=== PATIENT | female | born 1990 | race Caucasian/White ===

== ENCOUNTER 2020-01-10 18:48 | Inpatient (IN) | payer OTHER, SELFPAY ==
[2020-01-10 19:16] VITALS: BMI 28.8
--- NOTE | 2020-01-10 19:19 | LDADM ---
This patient, Graciela Stringer, was admitted to Labor/Delivery/Recovery 105 on 01/10/20 at 18:48. Plans for labor, pain management and were discussed with patient. Patient/family oriented to hospital policies and general routines including ID bracelet, bed and alarms, visiting hours, pain management, procedures, bathroom and other care routines, personal items, smoking policy, room service/diet and guest tray routines, security routines, and visiting hours. Patient/Family are encouraged to report perceived risks to care and to ask questions if they do not understand what they are told or what they should do. See OBIX for further documentation.
[2020-01-10 19:28] VITALS: BP 113/78; PULSE 100
[2020-01-10] MEDS: DINOPROSTONE 10 MG VAG INSERT VAGINAL (19:36)
[2020-01-10 19:37] LABS: Eosinophils Percent Auto 0.3 % (0-4.4); Hematocrit 33.5 % (37.0-47.0); Hemoglobin 11.4 g/dL (12.0-15.0); Immature Granulocyte Absolute 0.04 K/mm3 (0.00-0.031); Immature Granulocyte Percent A 0.7 % (0-0.5); Lymphocytes Absolute Auto 1.17 K/mm3 (0.9-3.2); Lymphocytes Percent Auto 19.5 % (18.3-44.2); Mean Corpuscular Hemoglobin 32.4 pg (26-34); Mean Corpuscular Volume 95.2 fl (80-100); Mean Platelet Volume 9.4 fl (7.4-10.4); Monocytes Absolute Auto 0.4 K/mm3 (0.1-0.6); Neutrophils Absolute Auto 4.4 K/mm3 (1.3-6.7); Neutrophils Percent Auto 72.5 % (45.5-73.1); Platelet Count Result 206 k/mm3 (150-375); Red Blood Count 3.52 M/mm3 (4.2-5.4)
--- NOTE | 2020-01-10 20:06 | P.PNAN_ITS ---
Anes - Eval Pre Procedure Procedure: Labor epidural Date/Time: 01/10/20 20:06 Surgeon: Nikita Preop Diagnosis: pain during labor Pre Op Diagnosis: Induction of Labor Patient Data Age: 29 Gender: F Height: 1.73 m Weight: 86 kg Last Vital Signs Pulse 100 01/10/20 19:28 BP 113/78 01/10/20 19:28 Allergies Allergy/AdvReac Type Severity Reaction Status Date / Time Penicillins Allergy Hives Verified 12/07/19 15:23 Home Medications Medication Instructions Recorded Confirmed Type PNV cmb#95-ferrous fumarate-FA 1 tablet PO DAILY 12/07/19 12/07/19 History [] ferrous sulfate [Iron (ferrous 325 mg PO BID 12/07/19 12/07/19 History sulfate)] Laboratory Tests 01/10/20 01/10/20 19:21 19:21 WBC 6.0 K/mm3 K/mm3 (4.5-10.0) RBC 3.52 M/mm3 L M/mm3 (4.2-5.4) Hgb 11.4 g/dL L g/dL (12.0-15.0) Hct 33.5 % L % (37.0-47.0) MCV 95.2 fl fl (80-100) MCH 32.4 pg pg (26-34) MCHC 34.0 g/dl g/dl (32-36) RDW 13.0 % % (11.5-14.5) Plt Count 206 k/mm3 k/mm3 (150-375) MPV 9.4 fl fl (7.4-10.4) Immature Gran % (Auto) 0.7 % H % (0-0.5) Neut % (Auto) 72.5 % % (45.5-73.1) Lymph % (Auto) 19.5 % % (18.3-44.2) [place] % (Auto) 7.0 % % (2.6-8.5) Eos % (Auto) 0.3 % % (0-4.4) Baso % (Auto) 0.0 % L % (0.2-1.2) Lymph # (Auto) 1.17 K/mm3 K/mm3 (0.9-3.2) [place] # (Auto) 0.4 K/mm3 K/mm3 (0.1-0.6) Eos # (Auto) 0.0 K/mm3 K/mm3 (0-0.3) Baso # (Auto) 0.0 K/mm3 K/mm3 (0.0-0.1) Abs Immat Gran (auto) 0.04 K/mm3 H K/mm3 (0.00-0.031) Absolute Neuts (auto) 4.4 K/mm3 K/mm3 (1.3-6.7) Absolute Nucleated RBC 0.0 K/mm3 K/mm3 (0.0-0.012) Nucleated RBC % 0.0 % % (0.0-0.2) RPR Pending Patient hx anesthesia problems: none Family hx anesthesia problems: none PMFSH Family History Family History (Updated 12/07/19 @ 15:25 by Harvey Villareal RN) Father Diabetes mellitus Mother Diabetes mellitus Hypertension Social History Social History Smoking status: Never smoker Substance use: never Gender identity (if verbalized by the patient): Female Spiritual care concerns: No Exam Day of Procedure 01/10/20 20:06
[2020-01-10 21:40] VITALS: TEMP 36.9
[2020-01-10 21:42] VITALS: BP 123/68; PULSE 83
[2020-01-11] VITALS (235 sets, daily range): BP systolic 94–144; BP diastolic 41–111; PULSE 41–254; TEMP 36.8–37.7; O2SAT 78–100
[2020-01-11] MEDS: LACTATED RINGERS 1,000 ML 125 ML IV CONT ×4 (07:58→17:08)
[2020-01-11] MEDS: OXYTOCIN 30 UNITS/NS 500 ML 30 UNITS/500 ML BAG 6 UNITS IV CONT (08:01)
[2020-01-11 10:20] LABS: Rapid Plasma Reagin Non-Reactive (NonReactive)
--- NOTE | 2020-01-11 12:35 | PM.IMHP ---
H&P: HPI History of Present Illness Date/Time: 01/11/20 12:35 Chief complaint: Induction of Labor Narrative: Graciela Stringer is a 29 year old female at 41w0d admitted for elective term induction of labor. Cervical ripening started with cervidil overnight. Doing well today. Comfortable with epidural and no complaints. Review of Systems Constitutional: Constitutional: Reports no additional constitutional complaints Cardiovascular: Cardiovascular: Reports no additional cardiovascular complaints Respiratory: Respiratory: Reports no additional respiratory complaints Gastrointestinal: Gastrointestinal: Reports no additional gastrointestinal complaints Genitourinary: Genitourinary: Reports no additional female genitourinary complaints Musculoskeletal: Musculoskeletal: Reports no additional musculoskeletal complaints Psychiatric: Psychiatric: Reports no additional psychiatric complaints PMF Family History Family History Father Diabetes mellitus Mother Diabetes mellitus Hypertension Social History Social History Smoking status: Never smoker Substance use: never Gender identity (if verbalized by the patient): Female Spiritual care concerns: No Meds Home Medications and Allergies Home Medications Medication Instructions Recorded Confirmed Type PNV cmb#95-ferrous fumarate-FA 1 tablet PO DAILY 12/07/19 12/07/19 History [] ferrous sulfate [Iron (ferrous 325 mg PO BID 12/07/19 12/07/19 History sulfate)] Allergies Allergy/AdvReac Type Severity Reaction Status Date / Time Penicillins Allergy Hives Verified 12/07/19 15:23 Vital Signs Vital Signs - 24 hr 01/10/20 19:28 01/10/20 21:40 01/10/20 21:42 Temperature 36.9 C Pulse Rate 100 83 Blood Pressure 113/78 123/68 Pulse Oximetry 01/11/20 01:27 01/11/20 05:50 01/11/20 06:01 Temperature 36.9 C 36.9 C Pulse Rate 81 89 Blood Pressure 113/65 120/70 Pulse Oximetry 01/11/20 06:42 01/11/20 06:46 01/11/20 07:01 Temperature Pulse Rate 96 88 93 Blood Pressure 116/63 116/71 109/68 Pulse Oximetry 01/11/20 07:16 01/11/20 07:46 01/11/20 08:00 Temperature 37.1 C Pulse Rate 97 85 Blood Pressure 112/77 118/73 Pulse Oximetry 01/11/20 08:01 01/11/20 08:16 01/11/20 08:31 Temperature Pulse Rate 93 95 86 Blood Pressure 120/82 114/78 124/77 Pulse Oximetry 01/11/20 10:01 01/11/20 10:02 01/11/20 10:16 Temperature 36.8 C Pulse Rate 93 87 86 Blood Pressure 120/79 118/68 128/73 Pulse Oximetry 01/11/20 10:21 01/11/20 10:26 01/11/20 10:29 Temperature Pulse Rate 94 100 Blood Pressure 129/81 110/66 Pulse Oximetry 99 99 01/11/20 10:31 01/11/20 10:33 01/11/20 10:36 Temperature Pulse Rate 88 92 83 Blood Pressure 126/75 126/89 117/72 Pulse Oximetry 100 99 01/11/20 10:37 01/11/20 10:38 01/11/20 10:41 Temperature Pulse Rate 96 85 100 Blood Pressure 119/75 118/72 122/100 H Pulse Oximetry 99 01/11/20 10:43 01/11/20 10:44 01/11/20 10:46 Temperature Pulse Rate 84 87 Blood Pressure 123/69 123/64 Pulse Oximetry 98 01/11/20 10:48 01/11/20 10:51 01/11/20 10:53 Temperature Pulse Rate 80 88 Blood Pressure 119/63 126/80 Pulse Oximetry 98 99 01/11/20 10:54 01/11/20 10:56 01/11/20 10:58 Temperature Pulse Rate 82 81 Blood Pressure 126/75 126/73 Pulse Oximetry 99 01/11/20 10:59 01/11/20 11:01 01/11/20 11:03 Temperature Pulse Rate 89 78 70 Blood Pressure 103/46 L 119/80 116/70 Pulse Oximetry 99 01/11/20 11:06 01/11/20 11:08 01/11/20 11:11 Temperature Pulse Rate 67 72 76 Blood Pressure 119/75 117/70 118/74 Pulse Oximetry 98 01/11/20 11:13 01/11/20 11:16 01/11/20 11:18 Temperature Pulse Rate 77 70 67 Blood Pressure 116/71 117/72 118/68 Pulse Oximetry 99 100 01/11/20 11:21 01/11/20 1
[2020-01-11] MEDS: OXYTOCIN 30 UNITS/NS 500 ML 30 UNITS/500 ML BAG 125 UNITS IV CONT (21:25)
--- NOTE | 2020-01-11 21:35 | PM.OBPRVD ---
OB - Delivery Note Procedure Delivery date: 01/11/20 Procedure: Normal spontaneous vaginal delivery Intrapartal events: None Induction method: per misoprostol protocol (cervidil) and per pitocin protocol Delivery augmentation: rupture of membranes Delivery monitor: external FHT and external uterine Route of delivery: Laceration description: Periurethral - 2nd Degree Delivery repair: vicryl Specimen: Yes (placenta) Estimated blood loss (mL): 800 Anesthesia type: Epidural Narrative: Once she was noted to be complete and ready to push, the labor bed was broken down and legs were placed in stirrups for support. With contractions and maternal efforts, the presented in KLAUDIA position. The head was delivered. Checked for nuchal cord, no nuchal cord noted. Gentle downward traction was applied and the anterior shoulder delivered without issues, followed by the posterior shoulder and rest of the body. was vigrous and crying, so delayed cord clamping of approximately 1 minute was performed. The cord was clamped and cut. Cord gasses collected. Placenta was delivered spontaneously. IV oxytocin administered and fundal massage applied. Exam was performed to identify any lacerations. 2nd degree perineal laceration was repaired with 2-0 Vicryl. Good hemostasis noted. Patient tolerated the procedure well. All instrument and sponge counts were correct at the end of the procedure. [place] Baby Date of : 01/11/20 Time of : 20:57 Weeks of gestation at delivery: 41 Infant gender: Male Weight (pounds): 11 Weight (ounces): 0 presentation: vertex position: Left Occiput Anterior Placenta delivery description: Spontaneous cord vessel description: 3 Vessels score one minute: 8 score five minutes: 9
[2020-01-11] MEDS: LANOLIN (LANSINOH) 7.5 GM CREAM 1 APPLIC TOPICAL (22:28)
[2020-01-11] MEDS: WITCH HAZEL 40 PADS 1 PAD TOPICAL (22:28)
[2020-01-11] MEDS: BENZOCAINE 20% AER SPR (*SP) 56 GM CAN 1 SPRAY TOPICAL (22:28)
[2020-01-11] MEDS: IBUPROFEN 600 MG TABLET PO (22:54)
[2020-01-12 00:01] VITALS: BP 109/52; PULSE 72
[2020-01-12 00:16] VITALS: BP 108/52; PULSE 79
[2020-01-12] MEDS: LACTATED RINGERS 1,000 ML 999 ML (00:16)
[2020-01-12 00:40] VITALS: BP 114/63; PULSE 81; RESP 15; TEMP 37.1; O2SAT 98
[2020-01-12] MEDS: IBUPROFEN 600 MG TABLET PO ×3 (05:01→17:49)
[2020-01-12 05:28] LABS: Hemoglobin 8.8 g/dL (12.0-15.0)
[2020-01-12 07:15] VITALS: BP 105/70; PULSE 94; RESP 18; TEMP 36.4; O2SAT 99
--- NOTE | 2020-01-12 07:51 | P.PNAN_ITS ---
Anes-Prog Note L&D Date/Time: 01/12/20 07:51 Comfortable throughout: labor Neuraxial method: epidural Epidural/Spinal procedure site: clean & non-tender Neuro status: Neuro function grossly intact. Cardiovascular status: normal Respiratory status: normal Airway patency: baseline Mental status: baseline Post-Op hydration status: normal Vital Signs: Last Vital Signs Temp 37.1 C 01/12/20 00:40 Pulse 81 01/12/20 00:40 Resp 15 01/12/20 00:40 BP 114/63 01/12/20 00:40 Pulse Ox 98 01/12/20 00:40 I/O: Intake & Output 01/11/20 01/11/20 01/12/20 15:59 23:59 07:59 Intake Total 1999 999 Output Total 1702 168 Balance 1999 -595 -392 Post-procedural complaints: none Patient feedback: Patient satisfied with anesthetic care.
[2020-01-12] MEDS: MULTIVIT/MIN/PREN/FOL AC/IRON TABLET 1 TAB PO (09:52)
[2020-01-12] MEDS: DOCUSATE SODIUM 100 MG CAPSULE PO ×2 (09:52→17:50)
[2020-01-12] MEDS: POLYSACCHARIDE IRON COMPLEX 150 MG CAPSULE PO ×2 (09:52→17:49)
--- NOTE | 2020-01-12 10:30 | PC.NURSE ---
Consulted with patient, mother reports using a nipple shield for most feedings since . Both nipples are bruised from shallow latching. Discussed nipple shield precautions and possible complications. Instructions given on application and cleaning of shield. Patient able to return demonstration on proper application of shield. Discussed the need to initiate pumping if infant continues to nurse with the shield. Patient verbalizes understanding. Reviewed feeding cues, frequencies, duration of feedings, feeding elimination flow sheet, and signs of adequate intake. Demonstrated stimulation techniques to wake infant for feeding. Assisted with infant to breast. Reviewed positioning/alignment in cross cradle, holding breast in U hold and asymmetrical latch on. Discussed rational for each. Infant was able to latch correctly. nursed eagerly with steady draws and occasional swallowing for short bursts followed by long pausing. Reviewed signs of a correct latch, effective nursing and suck swallow ratio. was able to maintain latch without discomfort to mother. Nipple care reviewed. Advised to stimulate to keep awake and nursing effectively for increased intake and to assist with maintaining deep latch. Demonstrated how to adjust latch more deeply while feeding.
--- NOTE | 2020-01-12 13:43 | PM.OBPNVD ---
OB - PN: Subj Subjective Date/time seen: 01/12/20 13:43 PPD #1 Today she is doing well. She reports her pain is controlled. Her bleeding is slowing down, more normal now. She is tolerating regular diet. She is voiding and passing flatus. She has ambulated w/o symptoms of anemia. She is breast feeding, with lactations help. She desires her son to be circumcised. She would like to be discharged home tomorrow. She denies CP, SOB, DALEY, vision changes, N/V, fever, chills, dizziness or palpitations. OB - PN: Obj Data Labs CBC & Chem 7: 01/12/20 05:00 Labs: Laboratory Results - last 24 hr 01/12/20 05:00 Hgb 8.8 L Hct 26.0 L OB - PN A/P Assessment and Plan (1) Status post vaginal delivery: Status: Acute (2) PPH ( hemorrhage): Qualifiers: hemorrhage type: other immediate Qualified Code(s): O72.1 - Other immediate hemorrhage Code(s): O72.1 - Other immediate hemorrhage Status: Acute Plan day: 1 Plan: routine care, discharge home (tomorrow) and other (Strict ER return precautions. F/u in 4 weeks. ) Comments: Labs with expected drop in H/H due to PPH, bleeding light now. Time Spent With Patient Time: Total time spent is greater than 50% in coordination of care (as documented) at patient's floor/unit and/or counseling patient: Review of Systems Review of Systems: All systems reviewed & are unremarkable except as noted in HPI and below (HPI) Exam Const: General: comfortable, no acute distress, alert and awake Orientation/consciousness: patient oriented x3 Resp: Effort & Inspection: normal respiratory effort Auscultation: clear to auscultation bilaterally Cardio: Rate: regular rate GI: Auscultation: normal bowel sounds Other: mildly distended, soft, nontender : Other: fundus firm below umbilicus Psych: Appearance: grossly normal Affect: normal affect Attitude: cooperative
--- NOTE | 2020-01-12 14:45 | PC.NURSE ---
Breast pump provided due to nipple shield use. Instructions given on breast pump care and usage, pumping schedule, nipple care, and collection and storage of breast milk. Encouraged [id number], breast massage and manual expression to stimulate supply. . Assessed patient for correct flange size, placement and draw. Patient verbalizes and demonstrates understanding of instructions.
--- NOTE | 2020-01-12 15:15 | PC.NURSE ---
Mother called out for assist. was able to latch correctly using nipple shield. nursed eagerly with steady draws and occasional swallowing for short bursts followed by long pausing. Reviewed signs of a correct latch, effective nursing and suck swallow ratio. Infant was able to maintain latch without discomfort to mother. Nipple care reviewed. Infant fed for 3 minutes and was unable to wake to complete feeding. Discussed supplementation at this time, suggested to limit to 15 mls after each feeding and continue to pump after each feeding attempt while using the nipple shield.
[2020-01-12] MEDS: LANOLIN (LANSINOH) 7.5 GM CREAM 1 APPLIC TOPICAL (17:50)
[2020-01-12 20:55] VITALS: BP 121/77; PULSE 87; RESP 18; TEMP 36.6; O2SAT 97
[2020-01-13] MEDS: IBUPROFEN 600 MG TABLET PO ×2 (05:16→12:18)
--- NOTE | 2020-01-13 07:45 | PC.NURSE ---
PT introductions made and plan of care discussed per post , pain management, breast/pumping/supplementing, daily care activities and pending discharge to home. PT verbalized understanding of such care.
[2020-01-13 09:00] VITALS: BP 123/80; PULSE 88; RESP 18; TEMP 36.6; O2SAT 100
--- NOTE | 2020-01-13 09:00 | PC.NURSE ---
Patient viewed the discharge video Mother & Baby Care, The First Two Weeks . Patient was given the opportunity and encouraged to ask questions. Patient verbalized understanding of information shared and has been given the mother/baby guide for home reference.
[2020-01-13] MEDS: ACETAMINOPHEN 325 MG TABLET 650 MG PO (09:03)
[2020-01-13] MEDS: MULTIVIT/MIN/PREN/FOL AC/IRON TABLET 1 TAB PO (09:03)
[2020-01-13] MEDS: DOCUSATE SODIUM 100 MG CAPSULE PO (09:03)
[2020-01-13] MEDS: POLYSACCHARIDE IRON COMPLEX 150 MG CAPSULE PO (09:03)
[2020-01-13] MEDS: MEASLES,MUMPS,RUBELLA VACCINE 0.5 ML VIAL SUB-Q (12:17)
--- NOTE | 2020-01-13 13:30 | PC.NURSE ---
PT received discharge instructions per protocol and pt verbalized understanding of such instructions
--- NOTE | 2020-01-13 14:00 | PC.NURSE ---
PT discharged to home ambulatory accompanied by spouse and to waiting car. Follow up appts confirmed
[2020-01-15 10:20] VITALS: BP 133/86; PULSE 65; RESP 20; TEMP 36.7; O2SAT 100
--- NOTE | 2020-01-16 08:56 | PM.OBDSVD ---
DS: Admitting Diagnosis Admitting Diagnosis Admitting Diagnosis: Encounter for supervision of normal , unspecified, unspecified trimester DS: Discharge Diagnosis Discharge Diagnosis (1) Status post vaginal delivery: Status: Acute (2) PPH ( hemorrhage): Qualifiers: hemorrhage type: other immediate Qualified Code(s): O72.1 - Other immediate hemorrhage Code(s): O72.1 - Other immediate hemorrhage Status: Acute OB - DS: Summary Hospital Course Hospital Course: Admitted for elective induction of labor at term. Cervical ripening with cervidil followed by pitocin and AROM for induction of labor. course was complicated with hemorrhage. Managed with IV oxytocin and fundal massage. Date of discharge 01/13/20. OB Procedures : None OB Procedures Intrapartum: Spontaneous Vag Delivery OB Procedures: : None Peripartum Data Delivery Method: Natural Vaginal Laceration description: Periurethral - 2nd Degree complications: other ( hemorrhage) Status at Discharge Functional status at discharge: independent ambulation Overall status at discharge: patient is progressing back to baseline Time Spent with Patient Time attestation: Total time spent providing and/or coordinating discharge services: DS: Data Data Completed and Pending Pending studies at discharge: Pending at discharge 01/11/20 21:02 Surgical [PTH] Routine Discharge Plan Discharge Attending physician on discharge: Briana Jewell Discharging Clinician: Briana Jewell Anticipated Discharge Date/Time: 01/13/20 12:00 Patient Disposition: Home, Self-Care Activity: pelvic rest Diet: regular Discharge Instructions: Education: Mom and Baby Guide Given to: Mother Follow-Up: Call your delivering provider's office for an appointment to be seen in: 4 Weeks Mom and baby should come to the [facility] for the follow-up appointment. Appointment Date/Time: January 15, 2020 at 10:00 am What to expect at your follow-up visit: Blood Pressure Check Call [phone] if you are unable to keep your appointment time. BREAST CARE: * Wear a snug supportive bra. * For engorgement discomfort: Breast Feeding: * Apply warm moist washcloths * Express milk as needed to relieve engorgement * Wear loose clothing Bottle Feeding: * May apply ice packs * For sore nipples: * Identify correct latch-on * Apply warm moist washcloths before and after nursing * Air dry nipples after nursing * May apply Lansinoh cream to nipples PERINEAL CARE: * Until bleeding stops, use your anne bottle after urinating * Change your pad frequently throughout the day * You may take sitz baths several times a day (fill your bathtub with warm water and soak for 20 minutes.) Do NOT bathe in the water * No tub baths until seen by your physician - You may shower ACTIVITY: * Rest as much as possible. * Do not exercise or lift anything heavier than your baby (such as laundry or other children.) * Avoid stairs or driving as much as possible. * Do not put anything into the vagina. No douching, tampons, or sexual activity until seen by physician. NOTIFY PHYSICIAN IF YOU HAVE ANY QUESTIONS OR IF ANY OF THE FOLLOWING SYMPTOMS OCCUR: * If your perineum becomes red, swollen, or more painful than what you have experienced in the hospital. * If your vaginal bleeding becomes foul smelling. * If your vaginal bleeding becomes more heavy than a period or if your bleeding changes from pink to bright red. However, you may pass an occasional walnut-sized clot once or twice for the first week . * If you experience a sharp, shooting pain in you calves. * If you discover a hard, reddened area on your breast or if you experience flu-like symptoms. *
== END 2020-01-13 14:00 | disposition home or self-care (01) | DRG 806 ==
LOC: ANHOB2 01-13 07:52 → ANHLDR 01-16 09:24 → ANHOB2 01-16 09:24
PROVIDERS: Admitting Provider Obstetrics & Gynecology; PCP Nurse Practitioner; Visit Provider Obstetrics & Gynecology
DX: O36.8330 Maternal care for abnormalities of the fetal heart rate or rhythm, third trimester, not applicable or unspecified (principal); O72.1 Other immediate postpartum hemorrhage; Z37.0 Single live birth; Z3A.41 41 weeks gestation of pregnancy
CPT/HCPCS: 36415; 85014; 85018; 85025; 86592; 86850; 86900; 86901; 88307; 90710; A9270; J2590; J2795; J7120

== ENCOUNTER 2020-06-22 17:13 | Emergency (ER) | payer BC, SELFPAY ==
--- NOTE | 2020-06-22 17:16 | ED.FEMALEGU ---
HPI - Female Genitourinary General Chief complaint: Urogenital-Female Stated complaint: uti Time Seen by Provider: 06/22/20 17:16 Source: patient and RN notes reviewed History of Present Illness HPI Narrative: Patient is a 29-year-old female who presents the urgent care with complaints of a possible UTI. Patient states on she started to have a urgency and frequency and is now having burning since yesterday. Patient states she does have a 5-month-old at home but is not using any type of control and does not breast-feed. Patient states she has had a period since the and her last period was May 29. Denies of any nausea, vomiting, diarrhea, abdominal pain, low back pain. Patient does not have frequent history of urinary tract infections. No other acute complaints. No acute distress noted. Patient aware of the plan of care. Some parts of this dictation were generated by voice recognition software and may contain typographical and/or grammatical inaccuracies. Related Data Home Medications Medication Instructions Recorded Confirmed No Home Medications 06/22/20 06/22/20 Allergies Allergy/AdvReac Type Severity Reaction Status Date / Time Penicillins Allergy Hives Verified 12/07/19 15:23 Review of Systems Review of Systems: Narrative: CONSTITUTIONAL: Denies fever, chills, or sweats. EYES: Denies visual changes, redness, or discharge. ENT: Denies rhinorrhea, congestion, sore throat, or otalgia. CARDIOVASCULAR: Denies chest pain, palpitations, or edema. RESPIRATORY: Denies cough or dyspnea. GASTROINTESTINAL: Denies abdominal pain, nausea, vomiting, or diarrhea. GENITOURINARY: Reports of urinary urgency, frequency and dysuria SKIN: Denies rash or itching. MUSCULOSKELETAL: Denies back pain, joint pain, or myalgia. NEUROLOGIC: Denies headache, numbness, or weakness. All other systems reviewed are negative, except as documented in HPI. [facility] Family History Family History Father Diabetes mellitus Mother Diabetes mellitus Hypertension Social History Social History Smoking status: Never smoker Substance use: never Gender identity (if verbalized by the patient): Female Spiritual care concerns: No Comments At the time of my signature, I reviewed and agree with the nursing past medical, surgical, social, and family history. There is no relevant family history pertinent to the patient complaint. Exam Narrative: Exam Narrative: GENERAL: This is a well-nourished, well-developed patient, in no apparent distress. HEAD: normocephalic, atraumatic. EYES: PERRL. Sclera clear/white. Vision is grossly intact. EARS: External ears normal NOSE: External nose normal with no obvious nasal discharge, nares without redness, no rhinorrhea. THROAT: Mucous membranes moist NECK: Neck supple GASTROINTESTINAL: Abdomen soft, mild suprapubic tenderness, nondistended. SKIN: warm, intact with no suspicious lesions or rash, good texture and turgor. NEURO: awake, alert, and oriented to person, place and time. There were no obvious focal neurologic abnormalities. EXTREMITIES: No clubbing, cyanosis, or edema. BACK: Negative bilateral CVA tenderness Course Vital Signs Vital signs: Vital Signs Temperature 98.9 F 06/22/20 17:28 Pulse Rate 89 06/22/20 17:28 Respiratory Rate 20 06/22/20 17:28 Blood Pressure 139/89 06/22/20 17:28 Pulse Oximetry 100 06/22/20 17:28 Temperature 98.9 F 06/22/20 17:28 Pulse Rate 89 06/22/20 17:28 Respiratory Rate 20 06/22/20 17:28 Blood Pressure 139/89 06/22/20 17:28 Pulse Oximetry 100 06/22/20 17:28 Reviewed MDM - Female Genitourinary MDM Narrative Medical decision making narrative: Reviewed lab results with the patient. She is aware that urine analysis is not indicative of a urinary tract infection. No notable bacteria or blood in the urine. Pre
[2020-06-22 17:28] VITALS: BP 139/89; PULSE 89; RESP 20; TEMP 37.2; O2SAT 100
== END 2020-06-22 17:39 | disposition home or self-care (01) ==
PROVIDERS: Emergency Provider Nurse Practitioner Family; PCP Nurse Practitioner
DX: R30.0 Dysuria (principal)
CPT/HCPCS: 81003; 81025; 99213; G0463

== ENCOUNTER 2021-02-04 12:38 | Emergency (ER) | payer BC, SELFPAY ==
--- NOTE | ~2021-02-04 | US_ITS ---
EXAMINATION: US pelvic complete w TV DATE: 02/04/2021 14:44 INDICATION: Ectopic . Miscarriage. TECHNIQUE: Multiple transabdominal and endovaginal sonographic images of the pelvis were obtained. COMPARISON: None. FINDINGS: The anteverted uterus measures 8.5 x 4.6 x 6.4 cm. The endometrial complex appears heterogeneous and is thickened measuring 12 mm at the fundus increasing to 2 cm at the lower uterine segment/cervix wi th an irregularly-shaped gestational sac with yolk sac and likely pole without evident vascular flow on color Doppler within the endocervical canal consistent with in progress. The cervic al os appears dilated to 9 mm. Right ovary measures 1.8 x 1.6 x 2.1 cm . Left ovary measures 2.4 x 1. 6 x 1.5 cm and contains a 1.2 cm anechoic likely corpus luteum cyst. Vascular flow with arterial wave forms identified in both ovaries. No free fluid in the pelvis. IMPRESSION: 1. demise with in progress with gestational sac within the endocervical canal. Reviewed, dictated and finalized at location A. IMPRESSION: 1. demise with in progress with gestational sac within the endoc ervical canal.
[2021-02-04 12:50] VITALS: BP 119/83; PULSE 130; RESP 20; TEMP 36.4; O2SAT 100
[2021-02-04 13:26] LABS: Basophils Percent Auto 0.3 % (0.2-1.2); Eosinophils Percent Auto 0.4 % (0-4.4); Hematocrit 25.3 % (37.0-47.0); Hemoglobin 8.3 g/dL (12.0-15.0); Immature Granulocyte Absolute 0.02 K/mm3 (0.00-0.031); Immature Granulocyte Percent A 0.3 % (0-0.5); Lymphocytes Absolute Auto 1.21 K/mm3 (0.9-3.2); Lymphocytes Percent Auto 17.6 % (18.3-44.2); Mean Corpuscular HGB Conc 32.8 g/dl (32-36); Mean Corpuscular Hemoglobin 31.1 pg (26-34); Mean Corpuscular Volume 94.8 fl (80-100); Mean Platelet Volume 9.7 fl (7.4-10.4); Monocytes Absolute Auto 0.3 K/mm3 (0.1-0.6); Monocytes Percent Auto 4.7 % (2.6-8.5); Neutrophils Absolute Auto 5.3 K/mm3 (1.3-6.7); Neutrophils Percent Auto 76.7 % (45.5-73.1); Platelet Count Result 233 k/mm3 (150-375); Red Blood Count 2.67 M/mm3 (4.2-5.4); Red Cell Distribution Width 12.2 % (11.5-14.5); White Blood Count 6.9 K/mm3 (4.5-10.0)
--- NOTE | 2021-02-04 14:01 | ED.FEMALEGU ---
HPI - Female Genitourinary General Chief complaint: Vaginal Bleeding <Yahir Rolle MD - Last Filed: 02/04/21 16:50> Stated complaint: poss miscarriage, bleeding <Yahir Rolle MD - Last Filed: 02/04/21 16:50> Time Seen by Provider: 02/04/21 13:48 <Yahir Rolle MD - Last Filed: 02/04/21 16:50> Source: patient and RN notes reviewed <Yahir Rolle MD - Last Filed: 02/04/21 16:50> Mode of arrival: ambulatory <Yahir Rolle MD - Last Filed: 02/04/21 16:50> Limitations: no limitations <Yahir Rolle MD - Last Filed: 02/04/21 16:50> History of Present Illness HPI Narrative: Patient is 30 years old probably 10 weeks , 2, para one, zero presents to the ED with heavy vaginal bleeding, passing blood clots, associated with lightheadedness, dizziness and general weakness started over the last 48 hours. Patient had history of vaginal spotting for weeks, last week was seen by Dr. Soto and the diagnosis was miscarriage and patient probably will be better off to miscarriage naturally. Because of the heavy bleeding over the last 48 hours patient changed her mind and would like to have D&C. <Yahir Rolle MD - Last Filed: 02/04/21 16:50> Related Data Home medications: Home Medications Medication Instructions Recorded Confirmed No Home Medications 06/22/20 06/22/20 <Yahir Rolle MD - Last Filed: 02/04/21 16:50> Allergies/Adverse reactions: Allergies Allergy/AdvReac Type Severity Reaction Status Date / Time Penicillins Allergy Hives Verified 02/04/21 12:55 <Yahir Rolle MD - Last Filed: 02/04/21 16:50> Review of Systems Review of Systems: CONSTITUTIONAL: Denies fever, chills, or sweats. EYES: Denies visual changes, redness, or discharge. ENT: Denies rhinorrhea, congestion, sore throat, or otalgia. CARDIOVASCULAR: Denies chest pain, palpitations, or edema. RESPIRATORY: Denies cough or dyspnea. GASTROINTESTINAL: Denies abdominal pain, nausea, vomiting, or diarrhea. GENITOURINARY: Denies dysuria or hematuria. SKIN: Denies rash or itching. MUSCULOSKELETAL: Denies back pain, joint pain, or myalgia. NEUROLOGIC: Denies headache, numbness, or weakness. PSYCHIATRIC: Denies anxiety or depression. <Yahir Rolle MD - Last Filed: 02/04/21 16:50> PMFSH Family History Family History: Family History Father Diabetes mellitus Mother Diabetes mellitus Hypertension <Yahir Rolle MD - Last Filed: 02/04/21 16:50> Social History Social History: Social History Smoking status: Never smoker Substance use: never Gender identity (if verbalized by the patient): Female Spiritual care concerns: No <Yahir Rolle MD - Last Filed: 02/04/21 16:50> Exam Narrative: General appearance: Well-developed, well-nourished Skin: Normal color Head: Normocephalic, nontraumatic Eyes: Clear conjunctiva ENT: Oropharynx normal, ears normal, nose normal Neck: Supple, nontender Chest and respiratory: Airway patent, no respiratory distress, no accessory muscle use Heart: Regular rate/rhythm Abdomen: Soft, nontender, no organomegaly, quiet bowel sounds Vascular: Normal peripheral pulses, normal capillary refill. Musculoskeletal: Normal range of motion, nontender back Neurologic: Alert and oriented ?3, WOOL MIXER is normal as tested, no gross motor deficit <Yahir Rolle MD - Last Filed: 02/04/21 16:50> : External Female Exam: normal external appearance <Yahir Rolle MD - Last Filed: 02/04/21 16:50> Speculum Exam - Vagina: normal appearance of the vagina, vaginal bleedin
[2021-02-04] MEDS: SODIUM CHLORIDE 0.9% IV 1,000 ML 999 ML IV CONT (14:56)
[2021-02-04] MEDS: METHYLERGONOVINE MALEATE 0.2 MG/ML VIAL IM (15:58)
[2021-02-04 17:47] VITALS: BP 119/83; PULSE 104; RESP 18; O2SAT 100
[2021-02-04] MEDS: LACTATED RINGERS 1,000 ML 999 ML IV CONT (17:59)
[2021-02-04 19:40] VITALS: BP 120/68; PULSE 78; RESP 18; O2SAT 99
== END 2021-02-04 19:42 | disposition home or self-care (01) ==
PROVIDERS: Emergency Medicine; Emergency Provider Emergency Medicine
DX: O03.4 Incomplete spontaneous abortion without complication (principal)
CPT/HCPCS: 36415; 76830; 76856; 84702; 85025; 85461; 96360; 96361; 96372; 99284; J2210; J7030; J7120

== ENCOUNTER 2021-02-05 22:32 | Observation (INO) | payer BC, SELFPAY ==
[2021-02-05 22:34] VITALS: BP 108/68; PULSE 129; RESP 20; TEMP 36.9; O2SAT 100
[2021-02-05 22:47] LABS: Basophils Percent Auto 0.3 % (0.2-1.2); Eosinophils Absolute Auto 0.1 K/mm3 (0-0.3); Eosinophils Percent Auto 0.9 % (0-4.4); Immature Granulocyte Absolute 0.07 K/mm3 (0.00-0.031); Immature Granulocyte Percent A 0.9 % (0-0.5); Lymphocytes Absolute Auto 2.21 K/mm3 (0.9-3.2); Lymphocytes Percent Auto 28.1 % (18.3-44.2); Mean Corpuscular HGB Conc 33.1 g/dl (32-36); Mean Corpuscular Hemoglobin 32.3 pg (26-34); Mean Corpuscular Volume 97.3 fl (80-100); Mean Platelet Volume 9.3 fl (7.4-10.4); Monocytes Absolute Auto 0.4 K/mm3 (0.1-0.6); Monocytes Percent Auto 5.3 % (2.6-8.5); Neutrophils Absolute Auto 5.1 K/mm3 (1.3-6.7); Neutrophils Percent Auto 64.5 % (45.5-73.1); Nucleated Red Blood Cells Perc 0.4 % (0.0-0.2); Platelet Count Result 197 k/mm3 (150-375); Red Blood Count 1.86 M/mm3 (4.2-5.4); Red Cell Distribution Width 12.8 % (11.5-14.5); White Blood Count 7.9 K/mm3 (4.5-10.0)
[2021-02-05 22:53] LABS: Hematocrit 18.1 % (37.0-47.0)
[2021-02-05 22:57] LABS: Alanine Aminotransferase 14 U/L (4-35); Albumin Level 3.4 g/dL (3.5-5.1); Alkaline Phosphatase 58 U/L (38-126); Anion Gap 5 mmol/L (8-16); Aspartate Amino Transferase 16 U/L (14-36); Bilirubin,Total 0.2 mg/dL (0.2-1.3); Blood Urea Nitrogen 9 mg/dL (7-17); Calcium 8.7 mg/dL (8.4-10.2); Carbon Dioxide 22 mmol/L (22-30); Chloride 108 mmol/L (98-107); Estimated Glomerular Filt Rate > 60; Glucose 105 mg/dL (65-110); Lactic Acid Reflex 1.5 mmol/L (0.7-2.1); Potassium 3.5 mmol/L (3.4-5.0); Sodium 135 mmol/L (137-145)
[2021-02-05 23:29] VITALS: BP 108/67; PULSE 102; RESP 19; TEMP 37.1; O2SAT 100
[2021-02-06] VITALS (15 sets, daily range): BP systolic 96–116; BP diastolic 52–72; PULSE 61–115; RESP 9–20; TEMP 36.2–37.4; O2SAT 96–100; BMI 23.6
--- NOTE | 2021-02-06 00:55 | ED.FEVER ---
HPI - Fever General Chief Complaint: Fever Stated Complaint: Miscarriage, fever Time Seen by Provider: 02/05/21 23:29 History of Present Illness HPI Narrative: Patient is a 30-year-old female who presents ER with fever and lower abdominal discomfort. Patient was seen in the ER yesterday. At that time she was having an active miscarriage. She received Methergine and products were removed. Patient's bleeding has decreased in the last 24 hours but she is passed to golf ball size clots. Today she noticed that she is feeling more fatigued and was getting dizzy when going from sitting to standing. Related Data Home Medications Medication Instructions Recorded Confirmed No Home Medications 06/22/20 06/22/20 Allergies Allergy/AdvReac Type Severity Reaction Status Date / Time Penicillins Allergy Hives Verified 02/04/21 12:55 Review of Systems Review of Systems: All systems reviewed & are unremarkable except as noted in HPI and below Constitutional: Constitutional: Denies chills, Reports fatigue and Reports fever(s) ENT: Denies sore throat Gastrointestinal: Gastrointestinal: Reports abdominal pain, Denies diarrhea, Denies nausea and Denies vomiting Genitourinary: Genitourinary: Reports abnormal vaginal bleeding, Denies nocturia, Denies dysuria and Denies vaginal discharge PMFSH Past Medical History Medical History (Updated 02/06/21 @ 04:16 by Luisito Pan MD) Healthy female adult Surgical History Surgical History (Updated 02/06/21 @ 04:16 by Luisito Pan MD) No pertinent past surgical history Family History Family History Father Diabetes mellitus Mother Diabetes mellitus Hypertension Social History Social History Smoking status: Never smoker Alcohol intake: never Substance use: never Gender identity (if verbalized by the patient): Female Spiritual care concerns: No Exam Narrative: GENERAL: Well-appearing, well-nourished, and in no acute distress. HEAD: Normocephalic, atraumatic. NECK: Supple. CHEST: Clear to auscultation. No respiratory distress. HEART: Tachycardic regular. Normal peripheral pulses. ABDOMEN: Soft, nontender, nondistended. : Normal external genitalia. Cervix closed with small amount of dark blood and mucus from the os. No discharge. EXTREMITIES: Normal range of motion. No edema. SKIN: Warm, dry, no rash. NEURO: Alert and oriented x3. PSYCH: Normal mood and affect. Course Course Emergency Course: Discussed case with Dr. Soto. Admit for observation and blood transfusion. No recommendation for antibiotics at this time. Feels it is unlikely endometritis, septic retained products, or retained products of conception at this time. No hemorrhage on exam. Vital Signs Vital signs: Vital Signs Temperature 98.4 F 02/05/21 22:34 Pulse Rate 129 H 02/05/21 22:34 Respiratory Rate 20 02/05/21 22:34 Blood Pressure 108/68 02/05/21 22:34 Pulse Oximetry 100 02/05/21 22:34 Temperature 99.4 F 02/06/21 03:18 Pulse Rate 115 H 02/06/21 03:18 Respiratory Rate 18 02/06/21 03:18 Blood Pressure 116/67 02/06/21 03:18 Pulse Oximetry 100 02/06/21 03:18 MDM - Fever Lab Data Result diagrams: 02/05/21 22:42 02/05/21 22:42 Labs: Lab Results 02/05/21 02/05/21 02/05/21 Range/Units 22:42 22:42 22:42 WBC 7.9 (4.5-10.0) K/mm3 RBC 1.86 L (4.2-5.4) M/mm3 Hgb 6.0 L* (12.0-15.0) g/dL Hct 18.1 L* (37.0-47.0) % MCV 97.3 (80-100) fl MCH 32.3 (26-34) pg MCHC 33.1 (32-36) g/dl RDW 12.8 (11.5-14.5) % Plt Count 197 (150-375) k/mm3 MPV 9.3 (7.4-10.4) fl Immature Gran % (Auto) 0.9 H (0-0.5) % Neut % (Auto) 64.5 (45.5-73.1) % Lymph % (Auto) 28.1 (18.3-44.2) % [place] % (Auto) 5.3 (2.6-8.5) % Eos % (Auto) 0.9 (0-4.4) % Baso % (Auto)
[2021-02-06] MEDS: SODIUM CHLORIDE 0.9% IV 250 ML 30 ML IV CONT (02:19)
[2021-02-06] MEDS: TUBING, BLOOD PLUM PUMP TUBING 1 EACH XX (02:45)
--- NOTE | 2021-02-06 03:23 | PC.NURSE ---
This patient, Graciela Stringer, was admitted to [facility] Surg Room 303-01. Patient/family oriented to hospital policies and general routines including ID bracelet, bed and alarms, visiting hours, pain management, procedures, bathroom and other care routines, personal items, smoking policy, room service/diet, and visiting hours. Information on how to activate the Rapid Response Team has been discussed. Patient/Family are encouraged to report perceived risks to care and to ask questions if they do not understand what they are told or what they should do.
[2021-02-06] MEDS: ACETAMINOPHEN 325 MG TABLET 650 MG PO (03:42)
[2021-02-06] MEDS: SODIUM CHLORIDE 0.9% IV 250 ML 100 ML (06:09)
--- NOTE | 2021-02-06 07:54 | PM.DS ---
DS: Admitting Diagnosis Admitting Diagnosis s/p complete hemorrhage with symptomatic anemia DS: Discharge Diagnosis Discharge Diagnosis (1) Anemia: Code(s): D64.9 - Anemia, unspecified Status: Acute (2) Complete : Code(s): O03.9 - Complete or unspecified spontaneous without complication Status: Acute DS: Summary Hospital Course Reason for hospitalization: transfusion Hospital Course: patient received 2 units PRBC and was observed for fever. Remained afebrile and feels better after blood transfusion. Status at Discharge Functional status at discharge: independent ambulation Overall status at discharge: patient is progressing back to baseline Time Spent with Patient Time attestation: Total time spent providing and/or coordinating discharge services: Time spent: Less than 30 minutes DS: Data Data Completed and Pending Labs on day of discharge: Labs from last 24 hours 02/05/21 02/05/21 02/05/21 23:47 22:42 22:42 WBC RBC Hgb Hct MCV MCH MCHC RDW Plt Count MPV Immature Gran % (Auto) Neut % (Auto) Lymph % (Auto) [place] % (Auto) Eos % (Auto) Baso % (Auto) Lymph # (Auto) [place] # (Auto) Eos # (Auto) Baso # (Auto) Abs Immat Gran (auto) Absolute Neuts (auto) Absolute Nucleated RBC Nucleated RBC % Sodium 135 L Potassium 3.5 Chloride 108 H Carbon Dioxide 22 Anion Gap 5 L BUN 9 Creatinine 0.60 L Estim Creat Clear Calc Not Reportable Estimated GFR > 60 Glucose 105 Lactic Acid 1.5 Calcium 8.7 Total Bilirubin 0.2 AST 16 ALT 14 Alkaline Phosphatase 58 Total Protein 6.0 L Albumin 3.4 L Beta HCG, Quant 5418.60 Blood Type O Positive Antibody Screen Negative Crossmatch See Detail 02/05/21 22:42 WBC 7.9 RBC 1.86 L Hgb 6.0 L* Hct 18.1 L* MCV 97.3 MCH 32.3 MCHC 33.1 RDW 12.8 Plt Count 197 MPV 9.3 Immature Gran % (Auto) 0.9 H Neut % (Auto) 64.5 Lymph % (Auto) 28.1 [place] % (Auto) 5.3 Eos % (Auto) 0.9 Baso % (Auto) 0.3 Lymph # (Auto) 2.21 [place] # (Auto) 0.4 Eos # (Auto) 0.1 Baso # (Auto) 0.0 Abs Immat Gran (auto) 0.07 H Absolute Neuts (auto) 5.1 Absolute Nucleated RBC 0.0 Nucleated RBC % 0.4 H Sodium Potassium Chloride Carbon Dioxide Anion Gap BUN Creatinine Estim Creat Clear Calc Estimated GFR Glucose Lactic Acid Calcium Total Bilirubin AST ALT Alkaline Phosphatase Total Protein Albumin Beta HCG, Quant Blood Type Antibody Screen Crossmatch Discharge Plan Discharge Attending physician on discharge: Marcia Soto Discharging Clinician: Marcia Soto Anticipated Discharge Date/Time: 02/06/21 12:56 Patient Disposition: Home, Self-Care Activity: no preference Diet: regular Patient Instructions: Antibiotic Form Stand Alone Forms: General Discharge Information Follow-up/Referrals: Marcia Soto MD [Primary Care Provider] - 1 Week Discharge Medications: New ferrous sulfate [iron] 325 mg (65 mg iron) tablet 325 mg PO BID Qty: 60 RF: 2 No Action No Home Medications RF: 0 Date of admission: 02/06/21 00:54 Primary Care Provider: Marcia Soto Admitting Provider: Marcia Soto Attending physician on admission: Marcia Soto Condition: Stable Care Plan Goals: check CBC Wednesday with repeat BHCG
--- NOTE | 2021-02-06 13:21 | PC.NURSE ---
Patient states she has been having pelvic cramping and lower back pain along with passing clots, one as large as a tennis ball. Called Dr. Soto and notified her of same. Orders received to recheck HH at 1600 and give dose of p.o. Methergine.
[2021-02-06] MEDS: METHYLERGONOVINE MALEATE 0.2 MG TABLET PO (14:52)
[2021-02-06 15:52] LABS: Hematocrit 24.2 % (37.0-47.0); Hemoglobin 7.9 g/dL (12.0-15.0)
--- NOTE | 2021-02-06 16:45 | PC.NURSE ---
Called HH results to Dr. Soto along with update on patient. Orders received to discharge patient.
== END 2021-02-06 18:30 | disposition home or self-care (01) ==
LOC: ANHED 02-06 00:56 → ANH3MEDSUR 02-06 03:06
PROVIDERS: Family Medicine; Admitting Provider Obstetrics & Gynecology Gynecology; Emergency Provider Emergency Medicine; PCP Obstetrics & Gynecology Gynecology; Visit Provider Obstetrics & Gynecology Gynecology
DX: D64.9 Anemia, unspecified (principal); O03.9 Complete or unspecified spontaneous abortion without complication
CPT/HCPCS: 36415; 36430; 80053; 83605; 84702; 85014; 85018; 85025; 86850; 86900; 86901; 86920; 96360; 96361; 96365; 99285; A9270; G0378; J7050; P9016

== ENCOUNTER → 2022-01-30 13:46 | Outpatient (CLI) | payer OTHER, SELFPAY ==
--- NOTE | ~2022-01-30 | US_ITS ---
EXAMINATION: US OB <=14 wk fetus w TV DATE: 01/30/2022 14:59 INDICATION: Excessive and frequent menstruation, positive test TECHNIQUE: Real-time pelvic transabdominal and transvaginal ultrasound was performed. COMPARISON: None. FINDINGS: The uterus measures 9.1 x 4.3 x 6.0 cm.. The endometrial thickness measures 17 mm. No intra uterine gestational sac is identified. The right ovary measures 3.2 x 2.8 x 1.9 cm. The left ovary me asures 3.1 x 2.0 x 2.3 cm. There is normal vascular flow in the ovaries. There is a small amount of f ree fluid in the pelvis. IMPRESSION: 1. of unknown location. Although no intrauterine gestational sac is seen, this may be due t o early gestation. If the patient is clinically stable, recommend followup with serial beta-hCG and u ltrasound. Reviewed, dictated and finalized at location B. IMPRESSION: 1. of unknown location. Although no intrauterine gestational sac is s een, this may be due to early gestation. If the patient is clinically stable, r ecommend followup with serial beta-hCG and ultrasound.
== END ==
PROVIDERS: PCP Obstetrics & Gynecology Gynecology; Visit Provider Obstetrics & Gynecology Gynecology
DX: O26.21 Pregnancy care for patient with recurrent pregnancy loss, first trimester (principal); Z3A.00 Weeks of gestation of pregnancy not specified; D25.9 Leiomyoma of uterus, unspecified
CPT/HCPCS: 76801; 76817

== ENCOUNTER → 2022-02-13 08:04 | Outpatient (CLI) | payer OTHER, SELFPAY ==
--- NOTE | ~2022-02-13 | US_ITS ---
EXAMINATION: US OB <=14 wk fetus w TV DATE: 02/13/2022 08:36 INDICATION: First trimester dating TECHNIQUE: Real-time pelvic transabdominal and transvaginal ultrasound was performed. COMPARISON: 01/30/2022 FINDINGS: The uterus measures 10.0 x 5.2 x 6.8 cm. There is an intrauterine gestational sac. A yolk sac is identified. heart motion is identified measuring 114 beats per minute (bpm) by M-mode Do ppler. The crown rump length measures 3 mm , which correlates with an estimated gestational age of 5 weeks and 6 day(s) (+/-) 4 day(s). The right ovary measures 3.3 x 2.1 x 1.8 cm. The left ovary measures 2.2 x 2.0 x 2.2 cm. There is nor mal vascular flow in the ovaries. There is no free fluid in the pelvis. IMPRESSION: 1. Live intrauterine with an estimated gestational age of 5 weeks and 6 day(s) (+/-) 4 day( s) and an estimated delivery date of 10/10/2022. Reviewed, dictated and finalized at location B. IMPRESSION: 1. Live intrauterine with an estimated gestational age of 5 weeks and 6 day(s) (+/-) 4 day(s) and an estimated delivery date of 10/10/2022.
== END ==
PROVIDERS: PCP Obstetrics & Gynecology Gynecology; Visit Provider Obstetrics & Gynecology Gynecology
DX: O26.21 Pregnancy care for patient with recurrent pregnancy loss, first trimester (principal); D25.9 Leiomyoma of uterus, unspecified; Z3A.01 Less than 8 weeks gestation of pregnancy
CPT/HCPCS: 76801; 76817

== ENCOUNTER → 2022-05-19 15:17 | Outpatient (CLI) | payer OTHER, SELFPAY ==
--- NOTE | ~2022-05-19 | US_ITS ---
EXAMINATION: US OB /maternal detail DATE: 05/19/2022 15:55 INDICATION: screening. TECHNIQUE: Real-time ultrasound of the pelvis was performed. COMPARISON: None. FINDINGS: There is a single living fetus in breech presentation. The placenta is 2.1 cm from the cervical os. T he cervix is closed, measuring 3.2 cm. heart rate is 162 beats per minute (bpm). cardiac activity and movement are noted. The amniotic fluid index is subjectively normal. The following anatomy was identified as normal: 4 chamber heart 3 vessel cord cord insertion kidneys urinary bladder stomach spine diaphragm ventricles cisterna magna cerebellum The following biometric data were obtained: Biparietal diameter (BPD): 4.7 cm; head circumference (HC): 17.8 cm; abdominal circumference (AC): 16 .0 cm; femur length (FL): 3.4 cm. These measurements are concordant. Estimated weight is 374.1 g +/- 56.1 g, which correlates with the >97th percentile when is used as estimated date of delivery. As single measurements, these parameters are each equal to the following estimated gestational ages w ith ranges of +/- 2 standard deviations: BPD: 20 weeks 1 days ( 18 weeks 3 days - 21 weeks 6 days). HC: 20 weeks 2 days ( 18 weeks 5 days - 21 weeks 5 days). AC: 21 weeks 1 days ( 19 weeks 0 days - 23 weeks 1 days). FL: 20 weeks 3 days ( 18 weeks 5 days - 22 weeks 2 days). estimated gestational age based solely on measurements from this exam is 20 weeks 4 days +/- 1 weeks 3 days. IMPRESSION: 1. Single living fetus in breech presentation. 2. Estimated weight is 374.1 g +/- 56.1 g, which correlates with the >97th percentile when 2022 is used as estimated date of delivery. 3. Estimated date of delivery by ultrasound 10/02/2022. Reviewed, dictated and finalized at location K. HIC DESIGN ASSISTANT IMPRESSION: 1. Single living fetus in breech presentation. 2. Estimated weight is 374.1 g +/- 56.1 g, which correlates with the >97t h percentile when 10/10/2022 is used as estimated date of delivery. 3. Estimated date of delivery by ultrasound 10/02/2022.
== END ==
PROVIDERS: PCP Nurse Practitioner; Visit Provider Advanced Practice Midwife
DX: Z36.9 Encounter for antenatal screening, unspecified (principal)
CPT/HCPCS: 76805

== ENCOUNTER → 2022-07-20 08:27 | Outpatient (CLI) | payer OTHER, SELFPAY ==
--- NOTE | ~2022-07-20 | US_ITS ---
EXAMINATION: US OB follow up DATE: 07/20/2022 08:57 INDICATION: Size greater than dates during third trimester TECHNIQUE: Real-time ultrasound of the pelvis was performed. The interpreting radiologist was not pre sent for the study. COMPARISON: 05/19/2022 FINDINGS: There is a single living fetus in vertex presentation. The placenta is posterior and 9.4 cm from the internal cervical os. cardiac activity and movement are noted. heart rate is 147 beats per minute (bpm). The amniotic fluid index is 17.8 cm which is normal (normal range: 9. 4 cm to 22.8 cm). The following biometric data were obtained: Biparietal diameter (BPD): 7.3 cm; head circumference (HC): 27.4 cm; abdominal circumference (AC): 25 .3 cm; femur length (FL): 5.4 cm. These measurements are concordant. Estimated weight is 1360 g +/- 204 g, which correlates with the 74th percentile when 10/10/2022 i s used as estimated date of delivery. As single measurements, these parameters are each equal to the following estimated gestational ages w ith ranges of +/- 2 standard deviations: BPD: 29 weeks 3 days ( 27 weeks 2 days - 31 weeks 4 days). HC: 29 weeks 6 days ( 27 weeks 6 days - 32 weeks 0 days). AC: 29 weeks 4 days ( 27 weeks 2 days - 31 weeks 5 days). FL: 28 weeks 4 days ( 26 weeks 4 days - 30 weeks 5 days). estimated gestational age based solely on measurements from this exam is 29 weeks 3 days +/- 2 weeks 0 days. IMPRESSION: 1. Single living fetus in vertex presentation. 2. Normal amniotic fluid index. 3. Estimated weight is 1360 g +/- 204 g, which correlates with the 74th percentile when 3 is used as estimated date of delivery. Reviewed, dictated and finalized at location B. FLUXER IMPRESSION: 1. Single living fetus in vertex presentation. 2. Normal amniotic fluid index. 3. Estimated weight is 1360 g +/- 204 g, which correlates with the 74th p ercentile when 10/10/2022 is used as estimated date of delivery.
== END ==
PROVIDERS: PCP Nurse Practitioner; Visit Provider Advanced Practice Midwife
DX: O44.43 Low lying placenta NOS or without hemorrhage, third trimester (principal); O36.63X0 Maternal care for excessive fetal growth, third trimester, not applicable or unspecified
CPT/HCPCS: 76816

== ENCOUNTER → 2022-08-17 15:14 | Outpatient (CLI) | payer OTHER, SELFPAY ==
--- NOTE | ~2022-08-17 | US_ITS ---
EXAMINATION: US OB follow up DATE: 08/17/2022 15:43 INDICATION: COVID during third trimester TECHNIQUE: Real-time ultrasound of the pelvis was performed. The interpreting radiologist was not pre sent for the study. COMPARISON: 07/20/2022 FINDINGS: There is a single living fetus in vertex presentation obscured the cervix on the transabdominal imagi ng. The placenta is posterior and not low-lying. heart rate is 153 beats per minute (bpm). The amniotic fluid index is 15.6 cm, which is normal (5th%-95%: 8.6-24.2 cm at 32 weeks estimated gesta tional age). The following biometric data were obtained: BPD: 8.8 cm -> 35 weeks 4 days Head circumference: 35.6 cm -> 37 weeks 0 days Abdominal circumference: 29.7 cm -> 33 weeks 5 days Femur length: 6.2 cm -> 32 weeks 2 days The femur length to biparietal diameter ratio is slightly greater than [address] [facility] mean. These measurements are otherwise concordant. Head circumference to abdominal circumference ratio: 1.10 (normal range 0.93-1.11). Estimated weight: 2273 g (+/-) 341 g or 5 lbs. 0 oz. (+/-) 12 oz. IMPRESSION: 1. Single living fetus in vertex presentation with heart rate of 153 bpm. 2. Normal amniotic fluid index of 15.6 cm. 3. Estimated weight is 85th percentile by Hadlock criteria when 10/10/2022 is used as the estimat ed date of delivery (OLIVER). Please correlate with clinical information or earlier ultrasounds for most accurate OLIVER. 4. Femur length to biparietal diameter ratio slightly greater than 2 standard deviations below the sd an. Reviewed, dictated and finalized at location B. IMPRESSION: 1. Single living fetus in vertex presentation with heart rate of 153 bpm. 2. Normal amniotic fluid index of 15.6 cm. 3. Estimated weight is 85th percentile by Hadlock criteria when 10/10/2022 is used as the estimated date of delivery (OLIVER). Please correlate with clinical information or earlier ultrasounds for most accurate OLIVER. 4. Femur length to biparietal diameter ratio slightly greater than 2 standard d eviations below the mean.
== END ==
PROVIDERS: PCP Nurse Practitioner; Visit Provider Obstetrics & Gynecology Gynecology
DX: O98.513 Other viral diseases complicating pregnancy, third trimester (principal); Z3A.00 Weeks of gestation of pregnancy not specified; U07.1 COVID-19
CPT/HCPCS: 76816

== ENCOUNTER 2022-09-01 07:17 | Outpatient (RCR) | payer OTHER, SELFPAY ==
[2022-09-01 09:12] VITALS: BP 109/64; PULSE 96
== END 2022-11-02 18:26 | disposition home or self-care (01) ==
LOC: ANHOBOP 07:17
PROVIDERS: PCP Nurse Practitioner; Visit Provider Obstetrics & Gynecology Gynecology
DX: O09.293 Supervision of pregnancy with other poor reproductive or obstetric history, third trimester (principal); Z86.16 Personal history of COVID-19; Z3A.34 34 weeks gestation of pregnancy
CPT/HCPCS: 59025

== ENCOUNTER → 2022-09-10 11:21 | Outpatient (CLI) | payer OTHER, SELFPAY ==
--- NOTE | ~2022-09-10 | US_ITS ---
EXAMINATION: US OB follow up DATE: 09/10/2022 11:45 INDICATION: Size greater than dates during third trimester TECHNIQUE: Real-time ultrasound of the pelvis was performed. The interpreting radiologist was not pre sent for the study. COMPARISON: None. FINDINGS: There is a single living fetus in vertex presentation. The placenta is fundal. cardia c activity and movement are noted. heart rate is 175 beats per minute (bpm). The amniotic fluid index is 10.8 cm which is normal (normal range: 7.9 cm to 24.9 cm). The following biometric data were obtained: Biparietal diameter (BPD): 9.0 cm; head circumference (HC): 32.3 cm; abdominal circumference (AC): 33 .5 cm; femur length (FL): 6.9 cm. These measurements are concordant. Estimated weight is 3047 g +/- 457 g, which correlates with the 80th percentile when 10/10/2022 i s used as estimated date of delivery. As single measurements, these parameters are each equal to the following estimated gestational ages w ith ranges of +/- 2 standard deviations: BPD: 36 weeks 6 days ( 33 weeks 2 days - 39 weeks 5 days). HC: 37 weeks 1 days ( 34 weeks 4 days - 39 weeks 6 days). AC: 37 weeks 3 days ( 34 weeks 2 days - 40 weeks 3 days). FL: 35 weeks 5 days ( 32 weeks 5 days - 38 weeks 4 days). estimated gestational age based solely on measurements from this exam is 36 weeks 5 days +/- 2 weeks 4 days. IMPRESSION: 1. Single living fetus in vertex presentation. 2. Normal amniotic fluid index. 3. Estimated weight is 3047 g +/- 457 g, which correlates with the 80th percentile when 3 is used as estimated date of delivery. Reviewed, dictated and finalized at location L. IMPRESSION: 1. Single living fetus in vertex presentation. 2. Normal amniotic fluid index. 3. Estimated weight is 3047 g +/- 457 g, which correlates with the 80th p ercentile when 10/10/2022 is used as estimated date of delivery.
== END ==
PROVIDERS: PCP Nurse Practitioner; Visit Provider Advanced Practice Midwife
DX: O36.63X0 Maternal care for excessive fetal growth, third trimester, not applicable or unspecified (principal)
CPT/HCPCS: 76816

== ENCOUNTER 2022-10-04 18:25 | Inpatient (IN) | payer OTHER, SELFPAY ==
[2022-10-04] VITALS (17 sets, daily range): BP systolic 101–124; BP diastolic 61–80; PULSE 63–93; RESP 15–17; TEMP 36.6–36.8; BMI 29.5
--- NOTE | 2022-10-04 18:25 | LDADM ---
This patient, Graciela Stringer, was admitted to Labor/Delivery/Recovery 103 on 10/04/22 at 18:25. Plans for labor, pain management and were discussed with patient. Patient/family oriented to hospital policies and general routines including ID bracelet, bed and alarms, visiting hours, pain management, procedures, bathroom and other care routines, personal items, smoking policy, room service/diet and guest tray routines, security routines, and visiting hours. Patient/Family are encouraged to report perceived risks to care and to ask questions if they do not understand what they are told or what they should do. See OBIX for further documentation.
[2022-10-04 19:15] LABS: Basophils Percent Auto 0.2 % (0.2-1.2); Eosinophils Percent Auto 0.3 % (0-4.4); Hematocrit 32.2 % (37.0-47.0); Hemoglobin 11.2 g/dL (12.0-15.0); Immature Granulocyte Absolute 0.09 K/mm3 (0.00-0.031); Immature Granulocyte Percent A 1.4 % (0-0.5); Lymphocytes Absolute Auto 1.15 K/mm3 (0.9-3.2); Lymphocytes Percent Auto 17.9 % (18.3-44.2); Mean Corpuscular HGB Conc 34.8 g/dl (32-36); Mean Corpuscular Hemoglobin 33.2 pg (26-34); Mean Corpuscular Volume 95.5 fl (80-100); Mean Platelet Volume 9.6 fl (7.4-10.4); Monocytes Absolute Auto 0.4 K/mm3 (0.1-0.6); Monocytes Percent Auto 6.9 % (2.6-8.5); Neutrophils Absolute Auto 4.7 K/mm3 (1.3-6.7); Neutrophils Percent Auto 73.3 % (45.5-73.1); Platelet Count Result 176 k/mm3 (150-375); Red Blood Count 3.37 M/mm3 (4.2-5.4); Red Cell Distribution Width 12.8 % (11.5-14.5); White Blood Count 6.4 K/mm3 (4.5-10.0)
[2022-10-04] MEDS: LACTATED RINGERS 1,000 ML 125 ML IV CONT (22:11)
[2022-10-04] MEDS: OXYTOCIN 30 UNITS/NS 500 ML 30 UNITS/500 ML BAG IV CONT (22:11)
[2022-10-05] VITALS (76 sets, daily range): BP systolic 85–127; BP diastolic 48–85; PULSE 57–259; RESP 16–18; TEMP 36.4–37.3; O2SAT 98–100
--- NOTE | 2022-10-05 01:32 | P.PNAN_ITS ---
Anes - Eval Final PreProcedure Day of Procedure 10/05/22 01:32 Patient weight: overweight Heart: regular rate and rhythm Lungs: clear to auscultation Airway: Mallampati scale Neurological: alert and oriented ASA classification: III (plt 176, migraines, asthma, eczema, h/o PPH with last delivery) Results Review: All pre-operative results and documents have been reviewed as part of the pre- operative evaluation. Informed Consent: The patient's anesthetic plan and its attendant risks and benefits were discussed with the patient/family/POA. Questions were solicited and answers provided to the satisfaction of the patient/family/POA.
[2022-10-05] MEDS: LACTATED RINGERS 1,000 ML 125 ML IV CONT (01:58)
--- NOTE | 2022-10-05 06:50 | WPDOBADMIT ---
Obstetrics - Admit Note Admission Note: record reviewed. No pertinent additions to the history and/or any subsequent changes in the physical findings that are not consistent with the expected course of the were found. Additions to the history and/or subsequent changes in the physical findings follow. None.
--- NOTE | 2022-10-05 06:50 | PM.OBPRVD ---
OB - Delivery Note Procedure Delivery date: 10/05/22 Procedure: Events: Other (covid infection) Induction method: Per Pitocin Protocol Delivery monitor: External FHT and External Uterine Route of delivery: Episiotomy description: None Laceration Description: Periurethral and Perineal - 2nd Degree Delivery repair: vicryl Specimen: No Quantitative Blood Loss (ml): 150 Anesthesia type: Epidural Disposition: Floor Narrative: Patient arrived for induction of labor using Pitocin. She progressed to complete dilation and pushed very well with contractions. She brought the head to a crown. The head delivered easily, Any loose nuchal cord was noted. She smoothly delivered the anterior followed by the posterior shoulder, and remainder of the . The infant was placed skin to skin on the maternal abdomen and dried and stimulated by the nursery staff. After 1 minute of life the cord was doubly clamped and cut. Cord blood, cord gases, and a segment of umbilical cord were obtained. the fundus remained firm in the delivery room. All delivery counts correct. Mother and skin to skin. Baby Date of : 10/05/22 Time of : 06:06 Weeks of gestation at delivery: 39 gender: Male Weight (pounds): 9 Weight (ounces): 1 presentation: vertex position: Right Occiput Anterior Placenta delivery description: Spontaneous Cord Vessel Description: 3 Vessels, Nuchal Cord, Clamped/Cut and Delayed Cord Clamping score one minute: 8 score five minutes: 9
[2022-10-05] MEDS: OXYTOCIN 30 UNITS/NS 500 ML 30 UNITS/500 ML BAG 125 UNITS IV CONT (06:54)
--- NOTE | 2022-10-05 06:54 | PM.OBDSVD ---
DS: Admitting Diagnosis Discharge Date 10/06/2022 Admitting Diagnosis 32 y.o. Covid infection in Hx Hemorrhage DS: Discharge Diagnosis Discharge Diagnosis (1) Status post vaginal delivery: Status: Acute (2) Mother currently breast-feeding: Code(s): Z39.1 - Encounter for care and examination of lactating mother Status: Acute OB - DS: Summary Hospital Course Hospital Course: Uncomplicated OB Procedures : NST and Ultrasound OB Procedures Intrapartum: Spontaneous Vag Delivery OB Procedures: : None Peripartum Data Delivery Method: Natural Vaginal Laceration Description: Periurethral and Perineal - 2nd Degree Episiotomy description: None complications: none Status at Discharge Overall status at discharge: patient is progressing back to baseline Time Spent with Patient Time attestation: Total time spent providing and/or coordinating discharge services: Exam Narrative: Alert and oriented. Mood is pleasant and cooperative. Urinating without difficulty. Denies passing any large clots. Perineum with minimal edema. Fundus firm and below umbilicus. Const: General: cooperative, healthy appearing, no acute distress and alert Orientation/consciousness: patient oriented x3 Limitations: no limitations Resp: Effort & Inspection: normal respiratory effort Auscultation: clear to auscultation bilaterally Cardio: Rate: regular rate GI: Inspection: normal to inspection Neuro: General: patient oriented x3 Extrem: General: normal to inspection Psych: Appearance: grossly normal Mental Status: mental status grossly normal Affect: normal affect Thought process: Normal thought process present DS: Data Data Completed and Pending Labs on day of discharge: Labs from last 24 hours 10/04/22 19:05 WBC 6.4 RBC 3.37 L Hgb 11.2 L D Hct 32.2 L MCV 95.5 MCH 33.2 MCHC 34.8 RDW 12.8 Plt Count 176 MPV 9.6 Immature Gran % (Auto) 1.4 H Neut % (Auto) 73.3 H Lymph % (Auto) 17.[address] [place] % (Auto) 6.9 Eos % (Auto) 0.3 Baso % (Auto) 0.2 Lymph # (Auto) 1.15 [place] # (Auto) 0.4 Eos # (Auto) 0.0 Baso # (Auto) 0.0 Abs Immat Gran (auto) 0.09 H Absolute Neuts (auto) 4.7 Absolute Nucleated RBC 0.0 Nucleated RBC % 0.0 RPR Pending Blood Type O Positive Antibody Screen Negative Discharge Plan Discharge Attending physician on discharge: Marcia Soto Discharging Clinician: Sarahy Wooten Anticipated Discharge Date/Time: 10/06/22 11:00 Patient Disposition: Home, Self-Care Activity: may shower Diet: as tolerated Discharge Instructions: Continue taking your vitamin and any other supplements as previously directed (Examples: Iron, Vitamin D). You may take Tylenol 1000mg over the counter every 6 hours as needed for pain. Do not exceed 4000mg of Tylenol daily. You may continue using tucks pads and dermoplast spray if needed for a few more days. Patient Instructions: Antibiotic Form Stand Alone Forms: General Discharge Information Follow-up/Referrals: Sarahy Wooten, CNM [Certified Nurse Outside Sales] - (6 weeks post ) Discharge Medications: New ibuprofen 600 mg tablet 600 mg PO Q6H PRN (Reason: pain) Qty: 30 0RF ibuprofen 600 mg Tablet 600 mg PO Q6H PRN (Reason: Cramping) Qty: 30 0RF norethindrone (contraceptive) [Ortho Micronor] 0.35 mg tablet 0.35 mg PO DAILY Qty: 84 4RF Rx Instructions: Start 4-6 weeks after Continued Colace 50 mg Capsule 50 mg PO DAILY cholecalciferol (vitamin D3) 1,250 mcg (50,000 unit) Tablet 1,250 mcg PO WEEKLY Discontinued #2 Tablet 1 tablet PO DAILY ferrous sulfate [iron] 325 mg (65 mg iron) tablet 325 mg PO BID Qty: 60 2RF Date of admission: 10/04/22 18:25 Primary Care Provider: Marcos,Keyla Admitting Provider: Marcia Soto Attending physician on admission: Yudy
[2022-10-05 07:29] LABS: Rapid Plasma Reagin Non-Reactive (NonReactive)
[2022-10-05] MEDS: METHYLERGONOVINE MALEATE 0.2 MG/ML VIAL IM (07:44)
[2022-10-05] MEDS: BENZOCAINE 20% AER SPR (*SP) 56 GM CAN 1 SPRAY TOPICAL (08:30)
[2022-10-05] MEDS: IBUPROFEN 600 MG TABLET PO ×2 (08:30→17:37)
[2022-10-05] MEDS: WITCH HAZEL 40 PADS 1 PAD TOPICAL (08:30)
--- NOTE | 2022-10-05 14:02 | PC.NURSE ---
[id number] Introductions were made, then consulted with patient to assess needs related to . Mother with 3-4 months of history led the conversation with her?plans to feed?her infant, the?experience so far and states she has had no pain with . Reviewed [id number] with upright tummy to tummy to stimulate to breastfeed often for a good milk supply. With deeper conversation mother states is not opening up wide and it is a little pinchy with the latch. Reviewed the latch handout and discussed stimulating for wakefulness for a big,open, wide gape for optimal latching with bigger swallows. Resources provided for inpatient with name written on the white board for request with latching . Mother voiced understanding of information and will call if there is a request for assistance. Reported to the primary RN.
--- NOTE | 2022-10-05 15:44 | PC.NURSE ---
[id number] Consulted with patient to assess needs related to after mother requested. Blood sugar was checked and resulted at 68mg/dl. Mother led conversation with her experience with feeding baby so far and nipples show redness and loose skin from earlier sessions. Mother works well with her with encouragement. Reviewed working with infant, supporting breast and how to protect the nipples with an optimal deep latch, good positioning, and good hand washing. Encouraged understanding the benefits of skin to skin, responding to feeding cues, frequencies of feeding 8-12 times in 24 hours (approximately 2-3 hours), duration of feedings, milk production,hand expression (none was expressed from either breast) intake/output feeding sheet and signs of adequate intake encouraging swallowing at the breast. Reviewed positioning and alignment, supporting breast, off-centered (asymmetrical latch) and leading with the chin with big, open, wide gape. Infant latched to the right breast in cross cradle position. Several attempts were made to obtain an optimal latch. Infant repositions mouth to a shallow latch almost immediately after latching with a big, open, wide gape. After demonstrated piston sucking and nipple was misshaped after the latch a decision was made to attempt to latch infant to the left breast. appears to be chomping at the breast at times. Using the football and sandwich hold was able to latch optimally after a few attempts working infant through shallow latching. Mother was encouraged to align optimally with nose to nipple and bury the chin into the breast with big, open, wide gape latch. Education given to mother of how to visualize suck/swallow ratios and listen for drinking at the breast. Infant was able to maintain latch without discomfort to mother after initial discomfort. Father of baby is involved and supportive with stimulating milk and infant actively engaged in . demonstrates piston sucking, non-nutritive stuttering like sucking, and on occasion rocking motion with a possible rare swallow. Nipple care reviewed with optimal latch, good positioning and using clean hands when feeding her and touching her breast. Resources used to facilitate learning were used from the visual handout and tool. Parents voiced understanding of the education shared, to call for assistance if the infant does not latch or if there is discomfort with . Reported to the primary RN.
[2022-10-06 04:20] VITALS: BP 108/71; PULSE 90; RESP 16; TEMP 36.5
[2022-10-06 05:01] LABS: Hematocrit 30.8 % (37.0-47.0); Hemoglobin 10.3 g/dL (12.0-15.0)
--- NOTE | 2022-10-06 08:05 | PM.OBPNVD ---
OB - PN: Subj Subjective Date/time seen: 10/06/22 0720 Interval history: PPD 1 from . Reports biting at nipple. Unable to achieve good latch. Has worked with . Plans to exclusively pump. Desires DC home today. Patient comments: no complaints and pain well controlled [place] baby status: bottle feeding well feeding status: pumping and bottle feeding OB - PN: Obj Data Labs 10/06/22 04:28 Labs: Laboratory Results - last 24 hr 10/06/22 04:28 Hgb 10.3 L Hct 30.8 L OB - PN A/P Plan day: 1 Plan: discharge home and follow up 6 weeks Time Spent With Patient Time: Total time spent is greater than 50% in coordination of care (as documented) at patient's floor/unit and/or counseling patient: Review of Systems Review of Systems: All systems reviewed & are unremarkable except as noted in HPI and below Exam Narrative: Alert and oriented. Mood is pleasant and cooperative. Urinating without difficulty. Denies passing any large clots. Perineum with minimal edema. Fundus firm and below umbilicus. Const: General: cooperative, healthy appearing, no acute distress and alert Orientation/consciousness: patient oriented x3 Limitations: no limitations Resp: Effort & Inspection: normal respiratory effort Auscultation: clear to auscultation bilaterally Cardio: Rate: regular rate GI: Inspection: normal to inspection Neuro: General: patient oriented x3 Extrem: General: normal to inspection Psych: Appearance: grossly normal Mental Status: mental status grossly normal Affect: normal affect Thought process: Normal thought process present
--- NOTE | 2022-10-06 08:10 | WPDANLDPN2 ---
Anes-Prog Note L&D Date/Time: 10/06/22 08:10 Neuro status: Neuro function grossly intact. Cardiovascular status: normal Respiratory status: normal Airway patency: baseline Mental status: baseline Post-Op hydration status: normal Vital Signs: Last Vital Signs Temp 36.5 C 10/06/22 04:20 Pulse 90 10/06/22 04:20 Resp 16 10/06/22 04:20 BP 108/71 10/06/22 04:20 Pulse Ox 100 10/05/22 16:30 O2 Del Method Room Air 10/05/22 19:00 Pain score (VAS): 0 I/O: Intake & Output 10/05/22 10/06/22 10/06/22 23:59 07:59 15:59 Intake Total 850 Balance 850 Post-procedural complaints: none Patient feedback: Patient satisfied with anesthetic care.
[2022-10-06] MEDS: DOCUSATE SODIUM LIQ 100 MG/10 ML UDC 50 MG PO (08:42)
[2022-10-06] MEDS: MULTIVIT/MIN/PREN/FOL AC/IRON TABLET 1 TAB PO (08:43)
[2022-10-06] MEDS: IBUPROFEN 600 MG TABLET PO (08:43)
[2022-10-06 08:44] VITALS: BP 121/76; PULSE 102; RESP 16; O2SAT 99
--- NOTE | 2022-10-06 11:30 | PC.NURSE ---
[id number] Mother led the conversation with her experience and plan to feed her so far and her ability to feed her infant. Mother's nipples are sore and injured with bruising. Father of baby is bottle feeding to give mothers nipples a chance to heal. Reminded parents to use good handwashing technique to prevent infection. Mother is feeding appropriately for growth of and understands stimulating to eat if needed. has had appropriate feedings in the last 24 hours meets the outcomes for weight, output and jaundice at this time. Discussed the risks and benefits of using a nipple shield to promote to the breast and protect from injury. After reviewing the pros and cons of using a nipple shield, mother chooses to take a nipple shield to use with this as she did with her first infant. Nipple shield provided to mother due to nipple pain. Reviewed good handwashing, cleaning the nipple shield and application. Discussed with mom the nipple shield precautions, possible complications associated with the risks and benefits. Reviewed practicing with a nipple shield, then without and how to protect the milk supply and production. Mom and baby guide referred to as a resource for outpatient services, community resources and when to call a provider. Mom voiced understanding of the importance of hand expression, nipple stimulation and initiating a pumping schedule if infant continues to nurse with the shield. Mother states she is confident to continue feed her at home, when to call for assistance and denies any additional assistance or education at this time. Reinforced understanding of milk production, transition of milk, signs of adequate intake, transition of stool, prevention/relief of engorgement, responsive watching for feeding cues, the different methods of stimulating to breastfeed 2-3 hours after the start of the last feeding, community resources, medication information reviewed per [employer] and when to call a provider using the resource of the mom and baby guide. Parents voiced understanding of the education shared. Reported to the primary RN.
[2022-10-07 10:47] VITALS: BP 113/80; PULSE 84; RESP 20; TEMP 36.8; O2SAT 100
== END 2022-10-06 12:15 | disposition home or self-care (01) | DRG 807 ==
LOC: ANHLDR 10-05 06:57 → ANHOB2 10-06 08:08 → ANHLDR 10-07 09:43 → ANHOB2 10-07 09:43
PROVIDERS: Admitting Provider Obstetrics & Gynecology Gynecology; PCP Nurse Practitioner; Visit Provider Advanced Practice Midwife
DX: O69.81X0 Labor and delivery complicated by cord around neck, without compression, not applicable or unspecified (principal); Z37.0 Single live birth; Z3A.39 39 weeks gestation of pregnancy; O70.1 Second degree perineal laceration during delivery; O71.82 Other specified trauma to perineum and vulva
CPT/HCPCS: 36415; 85014; 85018; 85025; 86592; 86850; 86900; 86901; A9270; J2210; J2590; J2795; J7120

== ENCOUNTER 2024-09-25 15:19 | Outpatient (CLI) | payer OTHER, SELFPAY ==
--- NOTE | ~2024-09-25 | US_ITS ---
Pelvic ultrasound. Clinical History: Abnormal uterine bleeding Technique: Realtime transabdominal scanning of the pelvis was performed. Color flow Doppler and Doppl er spectral analysis were performed. Findings: The uterus is anteverted, and measures 9.8 x 5.2 x 6.7 cm. The endometrial stripe has a th ickness of 17 mm. No focal mass is identified. The right ovary measures 3.2 x 2.3 x 1.8 cm. No significant right ovarian or adnexal mass is seen. The left ovary measures 3.4 x 2.0 x 1.6 cm. No significant left ovarian or adnexal mass is seen. Vascular flow present in both ovaries on Doppler spectral analysis. There is no evidence of free fluid in the cul de sac. Impression: Unremarkable pelvic ultrasound. Reviewed, dictated and finalized at [facility]. Impression: Unremarkable pelvic ultrasound.
== END 2024-09-25 15:20 | disposition home or self-care (01) ==
PROVIDERS: PCP Obstetrics & Gynecology Gynecology; Visit Provider Obstetrics & Gynecology Gynecology
DX: N93.8 Other specified abnormal uterine and vaginal bleeding (principal)
CPT/HCPCS: 76856

== ENCOUNTER 2024-10-16 00:24 | Day surgery (SDC) | payer OTHER, SELFPAY ==
[2024-10-03 09:55] VITALS: BMI 23.0
--- NOTE | 2024-10-03 09:59 | SUR.PREOP ---
Report to the Outpatient Waiting Room, entrance under the green pavilion located off [facility], at time _0800_ on date _10/16/2024_. Planned Procedure Time: _1000_.? Time changes happen often and if your time is changed the preop area will call you the afternoon before. - You and your visitor will be asked to self-screen and do not enter if you have any COVID symptoms. Please call surgeon if you need to reschedule. - A mask is optional within the hospital at this time. Patients may have clear liquids (water, carbonated beverages, clear teas, apple juice) until 3 hours prior to surgery with a maximum of 20 ounces. - No food from midnight until time of surgery and no smoking, or chewing tobacco (or any form of nicotine). No chewing gum, candy or mints. Take only the following medications with a SIP of water on the morning of surgery: _NA_ DO NOT STOP ANY OF YOUR OTHER PRESCRIPTION MEDICATIONS PRIOR TO SURGERY EXCEPT THE FOLLOWING Hold all vitamins and supplements for 3 days per anesthesiologist. Medications to discontinue per physician _NA_ Date to take last dose_NA_ Please no make-up, nail chilean, hairspray, perfume, deodorant, or body powder the day of surgery.? No jewelry (including any body piercings) or valuables the day of surgery, leave them at home.? Please take a shower or bath the night before, or the morning of, surgery with an antibacterial soap.? Wear comfortable, loose fitting clothing. - Jewelry must be removed prior to entering the operating room.? Rings and piercings that are not removed may be cut off. - The hospital will not accept responsibility for valuables.? - Please leave all valuables, including medications, at home the day of surgery. If you are going home after surgery, a licensed hack driver must drive you home.? - NO public transportation without another adult if you receive anesthesia. - We recommend that an adult stay with you for 24 hours following discharge. - We also recommend that you do not drive, make important decision, drink alcoholic beverages, or take any drugs that were not prescribed by your health care provider for at least 24 hours after your discharge time. Follow any additional instructions given to you from your surgeon. Telephone instructions given to _Graciela_and asked if any additional questions and then verbalized understanding. Patient advised to call surgeon office or pre surgery nurse liaison [phone] if any additional questions.
--- OUTSIDE RECORDS SUMMARY | 2024-10-16 00:27 | XMS_ITS | Encounter Summary ---
Author Organization [facility] Address [address] [place] [address] Care Team Providers Care Collection Systems Foreman Name Role Phone Keyla Rodríguez BAND CUTTING MACHINE OPERATOR Primary Care Provider [phone] Encounter Details Date Type Department Care Team (Late st Contact Info) Description 08/11/2022 Regeneratet Message Enc [facility] Family Medicine [facility] [address] [place] [id number] Keyla Rodríguez [place] [address] [facility] Social History Tobacco Use Types Packs/Day Years Used Date Smoking Tobacco: Never Smokeless Tobacco: Never Alcohol Use Standard Drinks/Week Comments Not Currently 0 (1 standard drink = 0.6 oz pur e alcohol) Comments Yes Sex and Gender Information Value Date Recorded Sex Assigned at Female 05/02/2018 7:14 AM ELECTRICAL SYSTEM SPECIALIST Legal Sex Female 7:24 PM CDT Gender Identity Female 05/02/2018 7:14 AM ELECTRICAL SYSTEM SPECIALIST Sexual Orientation Not on file COVID-19 Exposure Response Date Recorded In the last 10 days, have yo u been in contact with someone who was confirmed or suspected to have Coronavirus/COVID-19? No / Unsure 08/14/2022 10:00 AM ELECTRICAL SYSTEM SPECIALIST documented as of this encounter Plan of Treatment Not on file documented as of this encounter Visit Diagnoses Not on filedocumented in this encounter Care Teams Collection Systems Foreman Relationship Specialty Start Date End Date Keyla Rodríguez NP [address] [place] [address] PCP - General Nurse Practitioner Family 05/02/18 documented as of this encounter
--- OUTSIDE RECORDS SUMMARY | 2024-10-16 00:27 | XMS_ITS | Encounter Summary ---
Author Organization [facility] Address Count includes the [facility] [place] [address] Care Team Providers Care Ski Top Trimmer Name Role Phone Keyla Rodríguez PHYSICS TUTOR Primary Care Provider [phone] Encounter Details Date Type Department Care Team (Late st Contact Info) Description 05/16/2024 QBotixt Message Enc [facility] Medical Group Family Medicine [facility] [address] [place] [address] Keyla Rodríguez [place] [address] Consistent Sinus Infections Social History Tobacco Use Types Packs/Day Years Used Date Smoking Tobacco: Never Passive Smoke Exposure: Never Smokeless Tobacco: Never Alcohol Use Standard Drinks/Week Comments Not Currently 0 (1 standard drink = 0.6 oz pur e alcohol) PHQ-2 Answer Date Recorded Patient Health Questionnaire-2 Score 0 04/21/2024 Comments No Sex and Gender Information Value Date Recorded Sex Assigned at Female 05/02/2018 7:14 AM LABORER CONSTRUCTION OR LEAK GANG Legal Sex Female 7:24 PM CDT Gender Identity Female 05/02/2018 7:14 AM LABORER CONSTRUCTION OR LEAK GANG Sexual Orientation Not on file documented as of this encounter Plan of Treatment Not on file documented as of this encounter Visit Diagnoses Not on filedocumented in this encounter Additional Health Concerns Assessment Noted Time PHQ-9 Depression Total Score: 0 04/21/20 24 11:38 AM LABORER CONSTRUCTION OR LEAK GANG documented as of this encounter Care Teams Ski Top Trimmer Relationship Specialty Start Date End Date Keyla Rodríguez NP [address] [place] [address] PCP - General Nurse Practitioner Family 05/02/18 documented as of this encounter
--- OUTSIDE RECORDS SUMMARY | 2024-10-16 00:27 | XMS_ITS | Encounter Summary ---
Author Organization [facility] Address [address] [place] [address] Care Team Providers Care Paediatric Physiotherapist Name Role Phone Keyla Rodríguez NP Primary Care Provider [phone] Encounter Details Date Type Department Care Team (Late st Contact Info) Description 01/20/2023 Shark Puncht Message Enc [facility] Medical Group Family Medicine - [place] [address] [place] [phone] Keyla Rodríguez NP [address] [place] [address] [employer] Social History Tobacco Use Types Packs/Day Years Used Date Smoking Tobacco: Never Smokeless Tobacco: Never Alcohol Use Standard Drinks/Week Comments Not Currently 0 (1 standard drink = 0.6 oz pur e alcohol) Comments No Sex and Gender Information Value Date Recorded Sex Assigned at Female 05/02/2018 7:14 AM FRUIT PRESERVER Legal Sex Female 7:24 PM CDT Gender Identity Female 05/02/2018 7:14 AM FRUIT PRESERVER Sexual Orientation Not on file documented as of this encounter Plan of Treatment Not on file documented as of this encounter Visit Diagnoses Not on filedocumented in this encounter Care Teams Paediatric Physiotherapist Relationship Specialty Start Date End Date Keyla Rodríguez NP [address] [place] [address] PCP - General Nurse Practitioner Family 05/02/18 documented as of this encounter
--- OUTSIDE RECORDS SUMMARY | 2024-10-16 00:27 | XMS_ITS | Clinical Summary ---
Author Organization [facility] Address [facility] [place] [address] Care Team Providers Care Plant Production Manager Name Role Phone Marcos, Anushka ROXANA Primary Care Provider [phone] Allergies Active Allergy Reactions Criticality Noted Date Comments Penicillins Unknown,Rash High 02/14/2015 Medications vitamin D2, ergocalciferol, (DRISDOL) 1.25 mg capsule Take 1 capsule (1.25 mg total) by mouth once a week. 3 Active clindamycin (CLEOCIN T) 1 % lotion APPLY TOPICALLY TO ACNE PRONE AREAS EVERY MORNING AFTER WASHING WITH PANOXYL WASH 4 Active hydrocortisone (HYTONE) 2.5 % ointment 4 Active Active Problems Problem Noted Date Diagnosed Date Dysmenorrhea 07/05/2015 Immunizations Immunization Administration Dates Next Due Dtap 10/12/1996 Dtp 04/19/1993, 2,02/17/1992,1991 Fluzone 6 Months+ Quad (0.5 mL Prefilled Syringe) 02/26/2023,03/25/2020 Influenza Adult (Generic) 03/08/2019,03/14/2018 MMR 10/12/1996,02/15/1993 Opv 10/12/1996, 3,05/18/1992,1991,1991 Family History Medical History Relation Comments No Known Problems Father Heart Disease Maternal Grandfather Heart Disease Maternal Grandmother Cancer Mother Relation Status Comments Father Maternal Grandfather Maternal Grandmother Mother Social History Tobacco Use Types Packs/Day Years Used Date Smoking Tobacco: Never Passive Smoke Exposure: Never Smokeless Tobacco: Never Tobacco Cessation:Counseling Given: Not Answered Alcohol Use Standard Drinks/Week Comments Not Currently 0 (1 standard drink = 0.6 oz pur e alcohol) rare PHQ-2 Answer Date Recorded Patient Health Questionnaire-2 Score 0 06/23/2024 Comments No Sex and Gender Information Value Date Recorded Sex Assigned at Female 05/02/2018 7:14 AM PRIVATE TUTOR Legal Sex Female 7:24 PM CDT Gender Identity Female 05/02/2018 7:14 AM PRIVATE TUTOR Sexual Orientation Not on file Last Filed Vital Signs Vital Sign Reading Time Taken Comments Blood Pressure 123/87 06/23/2024 10:27 AM PRIVATE TUTOR Pulse 87 06/23/2024 10:27 AM PRIVATE TUTOR Temperature 37.1 C (98.7 F) 06/23/2024 10:27 AM PRIVATE TUTOR Respiratory Rate 16 04/21/2024 11:2 8 AM PRIVATE TUTOR Oxygen Saturation 98% 06/23/2024 10: 27 AM PRIVATE TUTOR Inhaled Oxygen Concentration - - Weight 70.7 kg (155 lb 14.4 oz) 025 10:27 AM PRIVATE TUTOR Height 172.7 cm (5' 8 ) 06/23/2024 10:2 7 AM PRIVATE TUTOR Body Mass Index 23.7 06/23/2024 10:27 AM PRIVATE TUTOR Plan of Treatment Health Maintenance Due Date Last Done Comments Hepatitis C 08/21/2009 DTaP, Tdap and Td Vaccines (2 - Tdap) 08/21/2010 10/12/1996, 04/19/1993, 05/18/1992, Additional history exists Hepatitis B Vaccines (1 of 3 - 19+ 3-dose series) 08/21/2010 Annual Physical 05/02/2019 05/02/2018 Cervical Cancer Screening Pap Smear (Age 30 to 64) Every 3 Years 05/02/2021 05/02/2018 Cervical Cancer Screening Pap with HPV Testing (Age 30 to 64) Every 5 Years 08/21/2021 05/03/2018, 05/03/2018 Cervical Cancer Screening with HPV 08/21/2021 COVID-19 Vaccine ( season) 2024 09/20/2020, 08/30/2020 PHQ-2 (Physician [place]) Completed 06/23/2024 HPV Vaccines Aged Out No longer eligi ble based on patient's age to complete this topic Meningococcal B Vaccine Aged Out No l onger eligible based on patient's age to complete this topic Meningococcal Vaccine Aged Out No jhonny chelsi eligible based on patient's age to complete this topic Pneumococcal Vaccine: Pediatrics (0 to 5 Years) and At-Risk Patients (6 to 49 Years) Aged Out No longer eligible based on patient's age to complete this topic RSV Immunizations Under 20 Months Aged Out No longer eligible based on patient's age to complete this topic Procedures Procedure Name Priority Date/Time Associated Diagnosis Comments HPV MRNA E6/E7 Routine 05/03/2018 4:20 PM PRIVATE TUTOR CYTOPATH CERV/VAG THIN LAYER Routine 05/02/2018 12:00 AM PRIVATE TUTOR from Last 3 Months or Most Recently Relevant to Health Maintenance Results * HPV MRNA E6/E7 (05/03/2018 4:20 PM PRIVATE TUTOR) Pathologist [facility] HPV MRNA E6/E7 Not Detected [facility] Comment: Reference range: NOT DETECTED This test was performed using the APTIMA(R) HPV Assay ([employer] This assay detects E6/E7 viral messenger RNA (mRNA) from 14 high-risk HPV types (16,18,31,33,35,39,45,51, 52,56,58,59,66,68). For additional information please refer to: http://education.[employer]/faq/WOY146x5 (This link is being provided for informational/ educational purposes only.) The analytical performance characteristics of this assay have been determined by [facility] [employer] [place], [place]. The modifications have not been cleared or approved by the FDA. This assay has been validated pursuant to the CLIA regulations and is used for clinical purposes. Test Performed by [facility], [facility] [place], [address] [place] [address] Gt Pickard M.D., Ph.D., Director of Laboratories , CLIA [id number] 05/03/2018 4:20 PM PRIVATE TUTOR 05/03/2018 4:20 PM PRIVATE TUTOR Anushka Mccordfrich PEDIATRIC DERMATOLOGIST PATHOLOGY/CYTOLOGY ORDERABLES F inal Result Performing Organization Address City/[facility]/ZIP Co de Phone Number [facility] [address] [place] [address], [place] [phone] * Cytopath Cerv/Vag Thin Layer (05/02/2018 12:00 AM PRIVATE TUTOR) COPATH REPORT [facility] [address] [facility], [address] [place], [place] [address] Patient: GRACIELA PADRON Med Rec#: Ordering MD: ANUSHKA RODRÍGUEZ : 1990 Sex: F Location: Test: [facility] Cytology Collect Date: 05-02-2018 00:00 Gynecological Cytology Report Patient Name: GRACIELA PADRON Med. Rec. #:[id number] : 1990 (Age: 27) Gender: F Physician(s): Anushka Rodríguez Location: [facility]) Room Number: Billing #:[id number] Copy To: Collected: 05/02/2018 Received: 05/04/2018 Reported: 05/09/2018 Final Cytologic Diagnosis Satisfactory for evaluation. Endocervical component present. Negative for Intraepithelial Lesion or Malignancy. High-risk HPV mRNA E6/E7 by Aptima assay (performed at [facility]) is reported as NOT DETECTED (see separate report for details). tg/05/09/2018 Electronically Signed Out By Blake Bobo Source of Specimen(s) Cervical/Vaginal, Thin Prep Clinical History Date of Last Menstrual Period: 04/15/18 Last Pap a year ago, wnl. Z01.419 Billing Fee Code(s): A: 14564 [facility] ORDERS INTERFACE 05/02/2018 05/04/2018 9:1 0 AM PRIVATE TUTOR Anushka Marcos PEDIATRIC DERMATOLOGIST PATHOLOGY/CYTOLOGY ORDERABLES F inal Result [facility] ORDERS INTERFACE US from Last 3 Months or Most Recently Relevant to Health Maintenance Insurance Care Teams Plant Production Manager Relationship Specialty Start Date End Date Anushka Rodríguez [place] [address] PCP - General Nurse Practitioner Family 05/02/18
--- NOTE | 2024-10-16 07:33 | P.HP_ITS ---
History of Present Illness History of Present Illness Consent: Risks, benefits, and alternatives have been discussed and questions answered. Patient agrees to proceed with procedure. Chief complaint: menorrhagia Narrative: Graciela Stringer is a 34 year old female with heavy and long cycles. It was recommended to undergo D&C hysteroscopy for further workup. Risks of infection, bleeding perforation are reviewed. Patient voices understanding and agrees to proceed. Review of Systems Review of Systems: not repeated day of surgery; patient states no changes in status PMFSH Past Medical History Medical History (Updated 10/16/24 @ 07:36 by Marcia Soto MD) History of spontaneous With hemorrhage requiring 2units of packed red blood cells (normal spontaneous vaginal delivery) X2 Healthy female adult Surgical History Surgical History (Updated 02/06/21 @ 04:16 by Luisito Pan MD) No pertinent past surgical history Family History Family History Father Diabetes mellitus Mother Diabetes mellitus Hypertension Social History Social History Smoking status: Never smoker Second hand tobacco smoke exposure: No Alcohol intake: current Alcohol use details: OCASSIONAL Substance use: never Substance use type: does not use Lack of Transportation: No Lack of Food: Never True Current Housing: I Have Housing Concerned About Future Housing: No Difficulty Paying Gas/Electric Bills: No Difficulty Paying for Meds: No Currently Unemployed: No Education: Associate Degree Difficulty w/ Childcare or Family Care: No Living arrangements: with family Additional living arrangements comments: and children Gender identity (if verbalized by the patient): Female Spiritual care concerns: No Meds Home Medications and Allergies Home Medications ?Medication ?Instructions ?Recorded ?Confirmed ?Type cholecalciferol (vitamin D3) 1,250 1,250 mcg PO WEEKLY 09/18/22 10/03/24 History mcg (50,000 unit) tablet Allergies Allergy/AdvReac Type Severity Reaction Status Date / Time Penicillins Allergy Hives Verified 10/03/24 09:49 Exam Const: General: healthy appearing and alert Orientation/consciousness: patient oriented x3 Resp: Effort & Inspection: normal respiratory effort : External Female Exam: normal external appearance Speculum Exam - Va terell: normal appearance of the vagina and normal vaginal discharge Speculum Exam - Cervix: normal appearance of the cervix Bimanual exam- vagina & uterus: uterine size normal and consistency normal Bimanual Exam- Adnexa, other: normal adnexae and No adnexal tenderness Neuro: General: patient oriented x3 Assessment and Plan Assessment and plan (1) Menorrhagia: Code(s): N92.0 - Excessive and frequent menstruation with regular cycle Status: Acute Assessment and Plan: Plan to proceed with D&C hysteroscopy
--- NOTE | 2024-10-16 07:33 | WPDHPUPDATE1 ---
History and Physical Update Update Date/Time: 10/16/24 07:33 History and Physical has been reviewed, including an updated exam of the patient. There are NO changes in the patient's condition. Risks, benefits, and alternatives have been discussed and questions answered. Patient agrees to proceed with procedure.
[2024-10-16 08:15] VITALS: BP 122/75; PULSE 95; RESP 18; TEMP 37.3; O2SAT 99
[2024-10-16] MEDS: LACTATED RINGERS 1,000 ML 30 ML IV CONT (08:25)
[2024-10-16] MEDS: ACETAMINOPHEN 500 MG TABLET 1000 MG PO (08:33)
[2024-10-16 08:36] VITALS: BMI 23.1
[2024-10-16 08:38] LABS: BEDSIDEPREGUCG Negative (Negative)
--- NOTE | 2024-10-16 08:40 | WPDANESEPPF ---
Anes - Initial Pre Proc Eval Procedure: Operation Date: 10/16/24 10:00 Proposed Procedures p Hysteroscopy Dilation and Curettage - Marcia Soto MD Date/Time: 10/16/24 08:40 Surgeon: Marcia Soto MD Pre Op Diagnosis: menorrhagia Patient Data Age: 34 Gender: F Height: 1.73 m Weight: 69 kg Last Vital Signs Temp 37.3 C 10/16/24 08:15 Pulse 95 10/16/24 08:15 Resp 18 10/16/24 08:15 BP 122/75 10/16/24 08:15 Pulse Ox 99 10/16/24 08:15 O2 Del Method Room Air 10/16/24 08:15 Allergies Allergy/AdvReac Type Severity Reaction Status Date / Time Penicillins Allergy Hives Verified 10/16/24 08:34 Home Medications ?Medication ?Instructions ?Recorded ?Confirmed ?Type cholecalciferol (vitamin D3) 1,250 1,250 mcg PO WEEKLY 09/18/22 10/03/24 History mcg (50,000 unit) tablet Laboratory Tests 10/16/24 08:10 POC Urine HCG, Qual Negative (Negative) Patient hx anesthesia problems: none Family hx anesthesia problems: none Results Review: All pre-operative results and documents have been reviewed as part of the pre-operative evaluation. [facility] Past Medical History Medical History History of spontaneous With hemorrhage requiring 2units of packed red blood cells (normal spontaneous vaginal delivery) X2 Healthy female adult Surgical History Surgical History No pertinent past surgical history Family History Family History Father Diabetes mellitus Mother Diabetes mellitus Hypertension Social History Social History Smoking status: Never smoker Second hand tobacco smoke exposure: No Alcohol intake: current Alcohol use details: OCASSIONAL Substance use: never Substance use type: does not use Lack of Transportation: No Lack of Food: Never True Current Housing: I Have Housing Concerned About Future Housing: No Difficulty Paying Gas/Electric Bills: No Difficulty Paying for Meds: No Currently Unemployed: No Education: Associate Degree Difficulty w/ Childcare or Family Care: No Living arrangements: with family Additional living arrangements comments: and children Gender identity (if verbalized by the patient): Female Spiritual care concerns: No Anes - Eval Final PreProcedure Day of Procedure 10/16/24 08:40 Patient weight: normal Heart: regular rate and rhythm Lungs: clear to auscultation Airway: Mallampati scale class II Neurological: alert and oriented Last oral intake: >/= 8 hours ASA classification: I Emergent: no Anesthetic plan: proceed Anesthesia type and monitoring: general GIVS and standard monitoring Results Review: All pre-operative results and documents have been reviewed as part of the pre-operative evaluation. Informed Consent: The patient's anesthetic plan and its attendant risks and benefits were discussed with the patient/family/POA. Questions were solicited and answers provided to the satisfaction of the patient/family/POA.
[2024-10-16] MEDS: KETOROLAC 15 MG/ML VIAL (*BKC) IV PUSH (10:34)
--- NOTE | 2024-10-16 10:37 | W.PM.PROC2 ---
Procedure Note - Detailed Date of Procedure 10/16/24 Pre-op Diagnosis menorrhagia Post-op Diagnosis Same Procedure Performed D&C hysteroscopy Surgeon Marcia Soto MD Anesthesia MAC Findings Uterus sounds to 8cm and appears grossly Description of Procedure The patient is taken to operating room and placed under anesthesia in the dorsal lithotomy position. She was prepped and draped in the usual sterile fashion. [place] speculum was placed in the vagina and the cervix was grasped on the anterior lip with a tenaculum. The uterus sounded to 8cm. The diagnostic hysteroscope was placed and with no abnormalities noted is removed. The sharp curette was used to curette the endometrium until a good uterine cry was noted in all areas. All instruments were then removed. Sponge, needle, and instrument counts are correct per the OR staff. The patient was taken to recovery in stable condition. Estimated Blood Loss 5 Drains No Packing No Pathology Yes (Endometrial curettings) Complications No immediate complications Condition Stable Disposition PACU
[2024-10-16 10:40] VITALS: BP 103/73; PULSE 67; RESP 12; O2SAT 100
[2024-10-16] MEDS: oxyCODONE HCL (*CRX) 5 MG TAB IR PO (11:05)
[2024-10-16 11:10] VITALS: BP 121/83; PULSE 77; RESP 16
[2024-10-16 11:20] VITALS: BP 120/81; PULSE 76; RESP 18
== END 2024-10-16 11:28 | disposition home or self-care (01) ==
PROVIDERS: Anesthesiology; PCP Nurse Practitioner; Visit Provider Obstetrics & Gynecology Gynecology
PROC: 0U5B8ZZ Destruction of Endometrium, Via Natural or Artificial Opening Endoscopic (ICD-10-PCS; CPT 58563; principal; 2024-10-16 10:00)
DX: N92.0 Excessive and frequent menstruation with regular cycle (principal)
CPT/HCPCS: 58558; 88305; A9270; J1885; J2003; J2250; J2704; J3010; J7120